=== PATIENT | female | born 1950 | race American Indian/Alaskan Native ===

== ENCOUNTER 2017-02-15 13:44 | Inpatient (IN) | payer MEDICARE, MEDICAID ==
--- NOTE | 2017-02-15 14:02 | ED Physician Chart ---
ED Chief Complaint/HPI - Patient Information Date Seen:: 02/15/17 Time Seen:: 13:45 Chief Complaint:: Vomiting History of Present Illness:: onset x one day of N/V; no report of trauma, H/As, neck pain, C/P, SOB, cough, Abd. Pain, A/D/C, fever, chills, or urinary s/s Allergies:: Allergies Allergy/AdvReac Type Severity Reaction Status Date / Time ceftriaxone [From Rocephin] Allergy Verified 02/15/17 13:53 hydromorphone [From Dilaudid] Allergy Verified 02/15/17 13:53 iodine Allergy Verified 02/15/17 13:52 shellfish derived Allergy Verified 02/15/17 13:53 Historian:: Patient, EMS Review:: Nurse's Note Reviewed, EMS run form Reviewed, Transfer documents Reviewed ED Review of Systems - Review of Systems General/Constitutional: No fever, No chills, No weight loss, No weakness, No diaphoresis, No edema, No loss of appetite Skin: No skin lesions, No rash, No bruising Head: No headache, No light-headedness Eyes: No loss of vision, No pain, No diplopia ENT: No earache, No nasal drainage, No sore throat, No tinnitus Neck: No neck pain, No swelling, No thyromegaly, No stiffness, No mass noted Cardio Vascular: No chest pain, No palpitations, No PND, No orthopnea, No edema Pulmonary: No SOB, No cough, No sputum, No wheezing GI: No nausea, No vomiting, No diarrhea, No pain, No melena, No hematochezia, No constipation, No hematemesis G/U: No dysuria, No frequency, No hematuria Informatics Manager: No vaginal discharge, No abnormal vaginal bleed, No contraction Musculoskeletal: No bone or joint pain, No back pain, No muscle pain Endocrine: Polyuria, Polydipsia Psychiatric: No prior psych history, No depression, No anxiety, No suicidal ideation, No homicidal ideation, No auditory hallucination, No visual hallucination Hematopoietic: No bruising, No lymphadenopathy Allergic/Immuno: No urticaria, No angioedema Neurological: No syncope, No focal symptoms, No weakness, No paresthesia, No headache, No seizure, No dizziness, Confusion, No vertigo ED Past Medical History - Past Medical History Obtainable: Yes Past Medical History: HTN, DM, Dyslipidemia, PUD/GERD, Dementia (GI Bleeds) Family History: Diabetes Melitus, HTN Social History: Non Smoker, No Alcohol, No Drug Use, Single, Care Facility Surgical History: None Psychiatricy History: Dementia Medication: Reviewed ED Physical Exam - Physical Examination General/Constitutional: Awake, Well-developed, well-nourished, Alert, No distress, GCS 15, Non-toxic appearing, Ambulatory Head: Atraumatic Eyes: Lids, conjuctiva normal, PERRL, EOMI Skin: Nl inspection, No rash, No skin lesions, No ecchymosis, Well hydrated, No lymphadenopathy ENMT: External ears, nose nl, Nasal exam nl, Lips, teeth, gums nl Neck: Nontender, Full ROM w/o pain, No JVD, No nuchal rigidity, No bruit, No mass, No stridor Respiratory: Nl effort/Exclusion, Clear to Auscultation, No Wheeze/Rhonchi/Rales Cardio Vascular: RRR, No murmur, gallop, rubs, NL S1 S2 GI: No tenderness/rebounding/guarding, No organomegaly, No hernia, Normal BS's, Nondistended, No mass/bruits, No McBurney tenderness : No CVA tenderness Extremities: No tenderness or effusion, Full ROM, normal strength in all extremities, No edema, Normal digits & nails Neuro/Psych: Alert/oriented, DTR's symmetric, Normal sensory exam, Normal motor strength, Judgement/insight normal, Mood normal, Normal gait, No focal deficits Other Neuro/Psych comments:: Confused and Disorientd Misc: Normal back, No paraspinal tenderness ED Septic Shock - . Is Septic Shock (SBP<90, OR Lactate>4 mmol\L) present?: No
[2017-02-15] MEDS ORDERED: Sodium Chloride 0.9% 1,000 ML IV ONE (14:06)
[2017-02-15 14:43] LABS: % BASOPHILS 0.7 % (0.0-2.0); % EOSINOPHILS 1.3 % (0.0-5.0); % LYMPHOCYTES 16.8 % (20.0-50.0); % MONOCYTES 6.3 % (2.0-10.0); % NEUTROPHILS 74.9 % (40.0-80.0); HEMATOCRIT 30.6 % (41.0-60); MEAN CELL VOLUME 91.7 fl (81-100); MEAN CORPUSCULAR HEMOGLOBIN 29.8 pg (27.0-31.0); MEAN CORPUSCULAR HGB CONC 32.5 pg (28.0-36.0); NEUTROPHILE ABSOLUTE 7.1 Th/cmm (1.8-8.0); PLATELET COUNT 343 Th/cmm (150-400); RED BLOOD COUNT 3.34 Mil/cmm (3.80-5.20); WHITE BLOOD COUNT 9.5 Th/cmm (4.8-10.8)
--- NOTE | 2017-02-15 14:49 | Diagnostic Imaging Report ---
CHEST X-RAY: AP view INDICATION: pain COMPARISON: None FINDINGS: Left basal linear lung markings are noted. There is no focal consolidation or pleural effusions The heart is normal in size. Atherosclerosis is noted. The osseous structures demonstrate no acute abnormalities. IMPRESSION: Left basal linear lung markings which may be due to subsegmental atelectasis versus scarring. No focal consolidation identified. Atherosclerotic vascular disease.
[2017-02-15 14:54] LABS: INR 0.99 (0.5-1.4); PROTHROMBIN TIME (TEST) 10.3 SECONDS (9.5-11.5)
[2017-02-15 15:10] LABS: ALB/GLOB RATIO 0.8 (1.0-1.8); AMYLASE SERUM 58 U/L (29-103); ANION GAP 9.5 (7.0-16.0); BILIRUBIN,TOTAL 0.2 mg/dL (0.3-1.0); BUN/CREATININE RATIO 26.9; CALCIUM SERUM 9.1 mg/dL (8.6-10.3); CARBON DIOXIDE 25.8 mEq/L (21.0-31.0); CREATININE - SERUM 1.3 mg/dL (0.6-1.2); LIPASE 10 U/L (11-82); POTASSIUM SERUM 5.3 mEq/L (3.5-5.1)
[2017-02-15] MEDS ORDERED: INSULIN HUMAN REGULAR 100 UNITS/ML UNIT SUBQ ONE (16:22)
[2017-02-15 17:06] LABS: URINE BILIRUBIN NEGATIVE (NEGATIVE); URINE BLOOD LARGE (NEGATIVE); URINE GLUCOSE (UA) >=1000 mg/dL (NEGATIVE); URINE KETONE NEGATIVE (NEGATIVE); URINE PH 5.5 (4.6 - 8.0); URINE PROTEIN >=300 mg/dL (NEGATIVE); URINE UROBILINOGEN 0.2 E.U./dL (0.2 - 1.0)
[2017-02-15 17:13] LABS: URINE COLOR YELLOW
[2017-02-15 17:17] LABS: URINE BACTERIA FEW /hpf (NONE SEEN); URINE EPITHELIAL CELLS NONE SEEN /lpf (FEW)
[2017-02-15] MEDS ORDERED: INSULIN ASPART, RECOMBINANT 100 UNITS/ML SUBQ ONE (17:47)
[2017-02-15] MEDS ORDERED: Sodium Chloride 0.9% 1,000 ML IV SCH (18:05)
[2017-02-15] MEDS ORDERED: Morphine Sulfate 4 mg/mL 1mL Syr IV PRN (20:01)
[2017-02-15] MEDS ORDERED: Non-Formulary Item 1 EA (Clonidine Hcl [Clonidine Hcl] 0.2 MG) PO PRN (20:01)
[2017-02-15] MEDS ORDERED: Maalox 30 mL Cup PO PRN (20:05)
[2017-02-15] MEDS ORDERED: Levofloxacin 500mg/100mL 500 MG/100 ML BAG IV SCH ×2 (20:41→23:00)
[2017-02-15] MEDS ORDERED: Levofloxacin 500mg/100mL 500 MG/100 ML BAG IV ONE (21:00)
[2017-02-15] MEDS: Atorvastatin Calcium 10 MG TAB PO SCH (22:42)
[2017-02-16] MEDS ORDERED: INSULIN ASPART SLIDING SCALE 100 UNITS/ML UNIT SUBQ SCH
[2017-02-16] MEDS: INSULIN ASPART SLIDING SCALE 100 UNITS/ML UNIT SUBQ SCH ×5 (00:26→21:00)
[2017-02-16] MEDS: Sodium Chloride 0.9% 1,000 ML IV SCH ×2 (04:54→16:16)
[2017-02-16] MEDS: POLYETHYLENE GLYCOL 3350 17 GM PACK PO SCH ×2 (08:16→16:45)
[2017-02-16] MEDS: Pantoprazole 40 mg EC Tab PO SCH (08:18)
[2017-02-16] MEDS: Aspirin 81mg Chewable Tab PO SCH (08:18)
[2017-02-16] MEDS ORDERED: Albuterol Nebulizer 2.5mg/3mL HHN SCH (09:00)
[2017-02-16] MEDS ORDERED: PETROLATUM WHITE TP SCH (09:00)
[2017-02-16] MEDS ORDERED: LANOLIN TP SCH (09:00)
[2017-02-16] MEDS: Hydrogel 3 oz Tube TP SCH (14:18)
[2017-02-16] MEDS: Atorvastatin Calcium 10 MG TAB PO SCH (20:31)
[2017-02-16] MEDS: Levofloxacin 250 mg/50 mL Premix Bag IV SCH (20:32)
[2017-02-17] MEDS: Sodium Chloride 0.9% 1,000 ML IV SCH ×3 (06:40→17:43)
[2017-02-17] MEDS: INSULIN ASPART SLIDING SCALE 100 UNITS/ML UNIT SUBQ SCH ×4 (06:44→20:40)
[2017-02-17 09:11] LABS: % BASOPHILS 0.6 % (0.0-2.0); % EOSINOPHILS 5.7 % (0.0-5.0); % LYMPHOCYTES 30.4 % (20.0-50.0); % MONOCYTES 9.5 % (2.0-10.0); % NEUTROPHILS 53.8 % (40.0-80.0); HEMATOCRIT 29.9 % (41.0-60); HEMOGLOBIN 9.9 gm/dL (12-16); MEAN CORPUSCULAR HEMOGLOBIN 30.1 pg (27.0-31.0); MEAN PLATELET VOLUME 7.3 fl; NEUTROPHILE ABSOLUTE 3.5 Th/cmm (1.8-8.0); PLATELET COUNT 288 Th/cmm (150-400); RED BLOOD COUNT 3.29 Mil/cmm (3.80-5.20); RED CELL DISTRIBUTION WIDTH 15.1 % (11.5-20.0)
[2017-02-17 09:12] LABS: WHITE BLOOD COUNT 6.4 Th/cmm (4.8-10.8)
[2017-02-17 09:24] LABS: ANION GAP 8.2 (7.0-16.0); BUN - UREA NITROGEN 24 mg/dL (7-25); CALCIUM SERUM 8.6 mg/dL (8.6-10.3); CARBON DIOXIDE 26.9 mEq/L (21.0-31.0); CHLORIDE 107 mEq/L (98-107); GLUCOSE 321 mg/dL (70-105); POTASSIUM SERUM 5.1 mEq/L (3.5-5.1); SODIUM SERUM 137 mEq/L (136-145)
[2017-02-17] MEDS: POLYETHYLENE GLYCOL 3350 17 GM PACK PO SCH ×2 (09:52→17:41)
[2017-02-17] MEDS: Pantoprazole 40 mg EC Tab PO SCH (09:52)
[2017-02-17] MEDS: Aspirin 81mg Chewable Tab PO SCH (09:52)
[2017-02-17] MEDS: Hydrogel 3 oz Tube TP SCH (10:06)
--- NOTE | 2017-02-17 13:21 | History & Physical ---
ADMIT DATE: 02/15/2017 HISTORY OF PRESENT ILLNESS: The patient is a resident of [facility]. Apparently, she has been having abdominal pain and vomiting consistently several times. She was brought to the ER and was found to have hyponatremia, uncontrolled diabetes, dehydration, UTI, and hyperglycemia uncontrolled and was admitted, and it was hard to get history from the patient. REVIEW OF SYSTEMS: Difficult to obtain. The patient is complaining of abdominal pain and nausea and vomiting. PHYSICAL EXAMINATION: GENERAL: Awake, alert, not in acute distress. VITAL SIGNS: Stable. HEAD: Normal. ENT: Normal. LUNGS: Clear. CARDIOVASCULAR SYSTEM: S1, S2 heard. ABDOMEN: Soft. Bowel sounds are heard. CENTRAL NERVOUS SYSTEM: Decreased sensorium. DIAGNOSES: Hyponatremia, uncontrolled diabetes, nausea, vomiting, hyperglycemia, dehydration, and urinary tract infection. PLAN: The patient is being admitted. I will go ahead and give her antibiotics and fluids, and I will call Dr. Fleming to see the patient and I will follow the patient. JOB# [id number]
[2017-02-17] MEDS: LANOLIN TP SCH (13:49)
[2017-02-17] MEDS: Atorvastatin Calcium 10 MG TAB PO SCH (20:25)
[2017-02-17] MEDS: Levofloxacin 250 mg/50 mL Premix Bag IV SCH (20:27)
[2017-02-18] MEDS: INSULIN ASPART SLIDING SCALE 100 UNITS/ML UNIT SUBQ SCH ×5 (06:37→21:01)
[2017-02-18] MEDS: Sodium Chloride 0.9% 1,000 ML IV SCH (06:38)
[2017-02-18] MEDS: Aspirin 81mg Chewable Tab PO SCH (09:13)
[2017-02-18] MEDS: Pantoprazole 40 mg EC Tab PO SCH (09:15)
[2017-02-18] MEDS: NIFEdipine 30 mg ER Tab PO SCH (09:15)
[2017-02-18] MEDS: POLYETHYLENE GLYCOL 3350 17 GM PACK PO SCH ×2 (09:18→17:09)
[2017-02-18] MEDS: Hydrogel 3 oz Tube TP SCH (09:22)
[2017-02-18] MEDS: LANOLIN TP SCH (15:01)
[2017-02-18] MEDS ORDERED: Probiotic Screen MC PRN (16:27)
[2017-02-18] MEDS: Insulin Detemir 100 units/mL 10mL Vial SUBQ SCH (16:55)
--- NOTE | 2017-02-18 19:59 | Internal Medicine Prog Note ---
Internal Medicine Subjective - Subjective Service Date: 02/18/17 Patient seen and examined:: with staff Patient is:: awake, verbal Per staff patient has:: no adverse event, tolerating meds Internal Medicine Objective - Results Result Diagrams: 02/17/17 08:40 02/17/17 08:40 Recent Labs: Laboratory Last Values WBC 6.4 Th/cmm (4.8-10.8) D 02/17/17 08:40 RBC 3.29 Mil/cmm (3.80-5.20) L 02/17/17 08:40 Hgb 9.9 gm/dL (12-16) L 02/17/17 08:40 Hct 29.9 % (41.0-60) L 02/17/17 08:40 MCV 91.0 fl (81-100) 02/17/17 08:40 MCH 30.1 pg (27.0-31.0) 02/17/17 08:40 MCHC Differential 33.0 pg (28.0-36.0) 02/17/17 08:40 RDW 15.1 % (11.5-20.0) 02/17/17 08:40 Plt Count 288 Th/cmm (150-400) 02/17/17 08:40 MPV 7.3 fl 02/17/17 08:40 Neutrophils % 53.8 % (40.0-80.0) 02/17/17 08:40 Lymphocytes % 30.4 % (20.0-50.0) 02/17/17 08:40 Monocytes % 9.5 % (2.0-10.0) 02/17/17 08:40 Eosinophils % 5.7 % (0.0-5.0) H 02/17/17 08:40 Basophils % 0.6 % (0.0-2.0) 02/17/17 08:40 PT 10.3 SECONDS (9.5-11.5) 02/15/17 14:30 INR 0.99 (0.5-1.4) 02/15/17 14:30 Sodium 137 mEq/L (136-145) 02/17/17 08:40 Potassium 5.1 mEq/L (3.5-5.1) 02/17/17 08:40 Chloride 107 mEq/L (98-107) 02/17/17 08:40 Carbon Dioxide 26.9 mEq/L (21.0-31.0) 02/17/17 08:40 Anion Gap 8.2 (7.0-16.0) 02/17/17 08:40 BUN 24 mg/dL (7-25) 02/17/17 08:40 Creatinine 1.0 mg/dL (0.6-1.2) 02/17/17 08:40 Est GFR ( Amer) > 60.0 ml/min (>90) 02/17/17 08:40 Est GFR (Non-Af Amer) 59.1 ml/min 02/17/17 08:40 BUN/Creatinine Ratio 24.0 02/17/17 08:40 Glucose 321 mg/dL (70-105) H 02/17/17 08:40 POC Glucose 391 MG/DL (70 - 105) H 02/18/17 17:59 Hemoglobin A1c % 8.4 % (4.0-6.0) H 02/15/17 14:30 Calcium 8.6 mg/dL (8.6-10.3) 02/17/17 08:40 Total Bilirubin 0.2 mg/dL (0.3-1.0) L 02/15/17 14:30 AST 10 U/L (13-39) L 02/15/17 14:30 ALT 7 U/L (7-52) 02/15/17 14:30 Alkaline Phosphatase 139 U/L (34-104) H 02/15/17 14:30 Creatine Kinase 85 U/L (30-223) 02/15/17 14:30 Troponin I 0.01 ng/mL (0.01-0.05) 02/15/17 14:30 B-Natriuretic Peptide 73.4 pg/mL (5.0-100.0) 02/15/17 14:30 Total Protein 7.0 gm/dL (6.0-8.3) 02/15/17 14:30 Albumin 3.2 gm/dL (3.7-5.3) L 02/15/17 14:30 Globulin 3.8 gm/dL 02/15/17 14:30 Albumin/Globulin Ratio 0.8 (1.0-1.8) L 02/15/17 14:30 Triglycerides 248 mg/dL (<150) H 02/15/17 14:30 Cholesterol 194 mg/dL (<200) 02/15/17 14:30 LDL Cholesterol Direct 116 mg/dL (75-193) 02/15/17 14:30 HDL Cholesterol 53 mg/dL (23-92) 02/15/17 14:30 Amylase 58 U/L (29-103) 02/15/17 14:30 Lipase 10 U/L (11-82) L 02/15/17 14:30 Urine Source CLEAN C 02/15/17 15:15 Urine Color YELLOW 02/15/17 15:15 Urine Clarity CLOUDY (CLEAR) H 02/15/17 15:15 Urine pH 5.5 (4.6 - 8.0) 02/15/17 15:15 Ur Specific [place] 1.020 (1.005-1.030) 02/15/17 15:15 Urine Protein >=300 mg/dL (NEGATIVE) 02/15/17 15:15 Urine Glucose (UA) >=1000 mg/dL (NEGATIVE) H 02/15/17 15:15 Urine Ketones NEGATIVE mg/dL (NEGATIVE) 02/15/17 15:15 Urine Blood LARGE (NEGATIVE) H 02/15/17 15:15 Urine Nitrate NEGATIVE (NEGATIVE) 02/15/17 15:15 Urine Bilirubin NEGATIVE (NEGATIVE) 02/15/17 15:15 Urine Urobilinogen 0.2 E.U./dL (0.2 - 1.0) 02/15/17 15:15 Ur Leukocyte Esterase TRACE (NEGATIVE) H 02/15/17 15:15 Urine RBC 5-10 /hpf (0-5) H 02/15/17 15:15 Urine WBC 6-10 /hpf (0-5) H 02/15/17 15:15 Ur Epithelial Cells NONE SEEN /lpf (FEW) 02/15/17 15:15 Urine Bacteria FEW /hpf (NONE SEEN) 02/15/17 15:15 Urine Yeast MANY /hpf (NONE SEEN) H 02/15/17 15:15 - Physical Exam Vitals and I&O: Vital Signs Temp 99.1 F 02/18/17 16:00 Pulse 66 02/18/17 16:39 Resp 20 02/18/17 16:00 BP 181/61 02/18/17 16:39 Pulse Ox 94 02/18/17 16:00 Intake & Output 02/18/17 02/18/17 02/19/17 06:59 18:59 06:59 Intake Total 1050 Balance 1050 Weight (lbs) 335 lb Intake: Intake, IV Amount 1050 Levofloxacin 250mg/50mL 50 250 mg In 50 ml @ 50 mls/ hr IV Q24HR [facility] Rx#: [id number] Sodium Chloride 0.9% 1, 1000 000 ml @ 100 mls/hr IV . Q10H [facility] Rx#:[id number] Other: Stool Characteristics Soft Brown Active Medications: Current Medications Acetaminophen (Tylenol) 650 mg PO Q4HR PRN PRN Reason: Pain Or Fever above 101 Stop: 04/16/17 20:04 Last Admin: 02/16/17 09:46 Dose: 650 mg Al Hydrox/Mg Hydrox/Simethicone (Maalox) 30 ml PO Q6HR PRN PRN Reason: Dyspepsia Stop: 04/16/17 20:04 Albuterol Sulfate (Albuterol 2.5mg/3ml Neb Ud) 2.5 mg HHN DAILY [facility] Stop: 04/17/17 08:59 Allopurinol (Zyloprim) 100 mg PO DAILY [facility] Stop: 04/17/17 08:59 Last Admin: 02/18/17 09:15 Dose: 100 mg Aspirin (Aspirin Chewable) 81 mg PO DAILY [facility] Stop: 04/17/17 08:59 Last Admin: 02/18/17 09:13 Dose: 81 mg Atorvastatin Calcium (Lipitor) 20 mg PO HS [facility] Stop: 04/16/17 20:59 Last Admin: 02/17/17 20:25 Dose: 20 mg Baclofen (Lioresal) 10 mg PO QID [facility] Stop: 04/16/17 20:59 Last Admin: 02/18/17 09:14 Dose: 10 mg Bandage/Support Products (Hydrogel) 1 appl TP DAILY [facility] Stop: 04/17/17 08:59 Last Admin: 02/18/17 09:22 Dose: 1 appl Donepezil HCl (Aricept) 10 mg PO DAILY [facility] Stop: 04/17/17 08:59 Last Admin: 02/18/17 09:14 Dose: 10 mg Enalapril Maleate (Vasotec) 10 mg PO TID [facility] Stop: 04/19/17 16:14 Gabapentin (Neurontin) 100 mg PO TID [facility] Stop: 04/16/17 20:59 Last Admin: 02/18/17 09:14 Dose: 100 mg Hydralazine HCl (Apresoline) 50 mg PO TID [facility] Stop: 04/16/17 20:59 Last Admin: 02/18/17 09:18 Dose: 50 mg Sodium Chloride (Nacl 0.9%) 1,000 mls @ 100 mls/hr IV .Q10H [facility] Stop: 04/16/17 20:14 Last Admin: 02/18/17 06:38 Dose: 100 mls/hr Insulin Aspart (Novolog Insulin Sliding Scale) 0 units SUBQ ACHS [facility] PRN Reason: Protocol Stop: 04/16/17 20:59 Last Admin: 02/18/17 14:57 Dose: 1,000 units Insulin Detemir (Levemir Insulin) 20 units SUBQ BID [facility] PRN Reason: Protocol Stop: 04/19/17 16:59 Last Admin: 02/18/17 16:55 Dose: 20 units Lactobacillus Rhamnosus (Culturelle) 1 each PO DAILY [facility] Stop: 04/20/17 08:59 Levofloxacin (Levaquin) 500 mg PO Q24H [facility] Stop: 04/19/17 17:59 Miscellaneous (Misc Topical Product) 0 appl TP DAILY [facility] Stop: 04/18/17 08:59 Last Admin: 02/18/17 15:01 Dose: 130 appl Miscellaneous (Probiotic Screen) 1 ea MC PRN PRN PRN Reason: PROTOCOL Stop: 04/19/17 16:26 Morphine Sulfate (Morphine) 4 mg IV Q6H PRN PRN Reason: Severe Pain Mupirocin (Bactroban Oint) 1 appl TP BID [facility] Stop: 02/21/17 16:59 Last Admin: 02/18/17 14:55 Dose: 1 appl Mupirocin (Bactroban Oint) 1 appl NS BID [facility] Stop: 02/21/17 17:01 Last Admin: 02/18/17 09:20 Dose: 1 appl Nifedipine (Procardia Xl) 30 mg PO DAILY [facility] Stop: 04/19/17 16:14 Ondansetron HCl (Zofran Odt) 4 mg PO TID PRN PRN Reason: [place] Last Admin: 02/16/17 12:35 Dose: 4 mg Ondansetron HCl (Zofran) 4 mg IV Q8H PRN PRN Reason: Nausea / Vomiting Stop: 04/16/17 20:04 Pantoprazole Sodium (Protonix) 40 mg PO DAILY [facility] Stop: 04/17/17 08:59 Last Admin: 02/18/17 09:15 Dose: 40 mg Polyethylene Glycol (Miralax) 17 gm PO BID [facility] Stop: 04/17/17 08:59 Last Admin: 02/18/17 17:09 Dose: 17 gm Sucralfate (Carafate) 1 gm PO BIDAC [facility] Stop: 04/17/17 07:29 Last Admin: 02/18/17 17:09 Dose: 1 gm General: weak, alert HEENT: NC/AT, PERRLA Neck: Supple Lungs: CTAB Cardiovascular: RRR, Normal S1, Normal S2, without murmur Abdomen: soft, non-tender, non-distended Extremities: excoriation Neurological: no change Internal Medicine Assmt/Plan - Assessment Assessment: HYPONATREMIA UNCONTROLLED DM NAUSEA VOMITING DEHYDRATION UTI - Plan Plan: IVF FOR HYDRATION IV ABX CONTINUE CURRENT PLAN OF CARE Nutritional Asmnt/Malnutr-PDOC - Dietary Evaluation Malnutrition Findings (Please click <Entered> for more info): Nutritional Asmnt/Malnutrition Start: 02/16/17 14: 29 Text: Status: Complete Freq: Document 02/16/17 14:29 GSUN (Rec: 02/16/17 14:52 [email or web address] [id number]) Nutritional Asmnt/Malnutrition Patient General Information Nutritional Screening Consult Diagnosis ER: hyponatremia, N/V, uncontrolled DM, dehydration Pertinent Medical Hx/Surgical Hx ER report: HTN, DM, dyslipidemia, PUD/GERD, dementia, GI bleeds Subjective Information 66 [address] consult for A1c 8.4. Family and water quality manager Dale at bedside during inital visit. Pt with few teeth intact, requested for ground diet, senior grant writer explained levels of diet texture. Pt did not have a diet order during visit, however lunch tray at bedside and pt finished soup. Spoke to ANIA Sterling, RN stated there should be a standing diet order as there is no reason pt to be NPO. Pt was pelasant and alert. 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 Water Quality Technician provided brief nutrition edu on DM, pt declined detailed edu, pt has no questions at this time. Pt demonstrated fair [facility] diet knowledge and udnerstanding. Pt appeared morbidy obese, no muscle/fat wastings noted. Pt report UBW 440lb 1 month ago, questionable difference with EMR CBW 338lb. Pt stated possible richard loss as she has been "put on a diet." Pt reported usually good appetite . Current Diet Order/ Nutrition Support [id number], [facility] soft ground Pertinent Medications Lipitor, Novolog, Morphine, Zofran, Protonix, Miralax, Carafate Pertinent Labs 02/15: A1c 8.4, glucose 419 02/16: glucose 464H Nutritional Hx/Data Height 5 ft 9 in Height (Calculated Centimeters) 175.3 Current Weight (lbs) 338 lb Weight (Calculated Kilograms) 153.3 Weight (Calculated Grams) 510839.2 Usual body Weight (lbs) 440 [place] Body Weight 145 Weight Status Morbidly Obese GI Symptoms Difficult in: Chewing Food Allergies Yes Skin Integrity/Comment: Berny 13. Wound care 02/16: multiple moisture wounds, 1 non-intact skin Estimated Nutritional Goals BEE in Kcals: Adj wt of IBW Calories/Kcals/Kg AdjBW 193.3lb/87.8kg Kcals Calculated 2195-2634kcal (25-30kcal/kg) Protein: Adj wt of IBW Protein Calculated 88g (1g/kg) Fluid: ml 2195-2634ml (1ml/kcal) Nutritional Problem 3. Problem Problem Malnutrition related to Etiology energy inbalance aeb Signs/Symptoms: morbid obesity, BMI >40 2. Problem Problem Difficulty chewing related to Etiology few intact teeth aeb Signs/Symptoms: pt requested ground texture 1. Problem Problem Altered nutrition related laboratory values related to Etiology DM aeb Signs/Symptoms: A1c 8.4, glucose >400 Malnutrition Related to Morbid Obesity Malnutrition related to morbid obesity BMI> or equal to 40 Query Text:(Any 1 Criteria met) Malnutrition related to morbid obesity Yes Intervention/Recommendation Comments 1. Recommend [id number] to rpomtoe glycemic control while providing to meet minimal carbohydrate needs. 2. Discussed diet texture with pt, pt requested [facility] soft ground texture as pt only has few intact teeth. 3. Provided brief nutrition edu, pt demonstrated fair understanding. No further qusetions at this time. 4. 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 EMR listed "shellfish derived" only. ANIA Sterling and FNS notified . Expected Outcomes/Goals Expected Outcomes/Goals 1. PO intake to meet at least 75% of estimated nutritinoal eneds.
[2017-02-18] MEDS: Atorvastatin Calcium 10 MG TAB PO SCH (20:59)
[2017-02-19] MEDS: INSULIN ASPART SLIDING SCALE 100 UNITS/ML UNIT SUBQ SCH ×4 (06:38→21:26)
--- NOTE | 2017-02-19 08:10 | Progress Notes ---
DATE: SUBJECTIVE: The patient was seen in her room, lying in the bed. Per patient, she is feeling okay, denies any pain or discomfort. Per patient, she is having poor sleep pattern since she moved here to the hospital, otherwise the patient denies any discomfort or pain. Appears to be comfortable in no acute distress. OBJECTIVE: VITAL SIGNS: Temperature of 98, heart rate of 63, blood pressure 156/67, respirations of 18, 98% on room air. HEAD: Atraumatic and normocephalic. EYES: Bilateral conjunctivae are clear. Bilateral pupils equally round and reactive. NECK: Supple. No JVD. CARDIOVASCULAR: S1 and S2, without murmur. GASTROINTESTINAL: Soft and nontender without guarding. Positive bowel sounds. MUSCULOSKELETAL: No clubbing. No cyanosis noted. ASSESSMENT: 1. Hyponatremia. 2. Diabetes mellitus. 3. Dehydration. 4. Urinary tract infection. 5. Gout. 6. Hyperlipidemia. 7. Dementia. 8. Neuropathy. PLAN: We will continue current treatment. We will follow up with ID doctor for antibiotic management. Treatment plans were discussed with the patient's nurse. Treatment plans were discussed with Dr. Wright. JOB# [id number]
[2017-02-19] MEDS: Lactobacillus Rhamnosus 10 Billion CFU Capsule PO SCH (08:34)
[2017-02-19] MEDS: Aspirin 81mg Chewable Tab PO SCH (08:34)
[2017-02-19] MEDS: Pantoprazole 40 mg EC Tab PO SCH (08:34)
[2017-02-19] MEDS: NIFEdipine 30 mg ER Tab PO SCH (08:36)
[2017-02-19] MEDS: POLYETHYLENE GLYCOL 3350 17 GM PACK PO SCH ×2 (08:42→17:24)
[2017-02-19] MEDS: Insulin Detemir 100 units/mL 10mL Vial SUBQ SCH ×2 (08:49→17:33)
[2017-02-19 11:42] LABS: ALB/GLOB RATIO 0.9 (1.0-1.8); ALKALINE PHOSPHATASE 117 U/L (34-104); ANION GAP 9.2 (7.0-16.0); BILIRUBIN,TOTAL 0.2 mg/dL (0.3-1.0); BUN - UREA NITROGEN 21 mg/dL (7-25); BUN/CREATININE RATIO 23.3; CALCIUM SERUM 8.6 mg/dL (8.6-10.3); CARBON DIOXIDE 27.7 mEq/L (21.0-31.0); CHLORIDE 104 mEq/L (98-107); CREATININE - SERUM 0.9 mg/dL (0.6-1.2); GLUCOSE 344 mg/dL (70-105); POTASSIUM SERUM 4.9 mEq/L (3.5-5.1); SGOT 11 U/L (13-39); SGPT/ALT 9 U/L (7-52); SODIUM SERUM 136 mEq/L (136-145)
[2017-02-19] MEDS: Sodium Chloride 0.9% 1,000 ML IV SCH ×2 (13:12→21:34)
[2017-02-19] MEDS: LANOLIN TP SCH (14:51)
[2017-02-19] MEDS: Hydrogel 3 oz Tube TP SCH (14:51)
[2017-02-19] MEDS: Atorvastatin Calcium 10 MG TAB PO SCH (21:28)
[2017-02-20] MEDS: INSULIN ASPART SLIDING SCALE 100 UNITS/ML UNIT SUBQ SCH ×4 (07:42→22:49)
[2017-02-20] MEDS: Aspirin 81mg Chewable Tab PO SCH (08:32)
[2017-02-20] MEDS: Insulin Detemir 100 units/mL 10mL Vial SUBQ SCH ×2 (08:34→17:32)
[2017-02-20] MEDS: POLYETHYLENE GLYCOL 3350 17 GM PACK PO SCH ×2 (08:35→17:32)
[2017-02-20] MEDS: NIFEdipine 30 mg ER Tab PO SCH (08:35)
--- NOTE | 2017-02-20 10:13 | General Progress Note ---
Subjective - Review of Systems Events since last encounter: patient awake alert no distress Objective - Results Result Diagrams: 02/17/17 08:40 02/19/17 11:21 Recent Labs: Laboratory Last Values WBC 6.4 Th/cmm (4.8-10.8) D 02/17/17 08:40 RBC 3.29 Mil/cmm (3.80-5.20) L 02/17/17 08:40 Hgb 9.9 gm/dL (12-16) L 02/17/17 08:40 Hct 29.9 % (41.0-60) L 02/17/17 08:40 MCV 91.0 fl (81-100) 02/17/17 08:40 MCH 30.1 pg (27.0-31.0) 02/17/17 08:40 MCHC Differential 33.0 pg (28.0-36.0) 02/17/17 08:40 RDW 15.1 % (11.5-20.0) 02/17/17 08:40 Plt Count 288 Th/cmm (150-400) 02/17/17 08:40 MPV 7.3 fl 02/17/17 08:40 Neutrophils % 53.8 % (40.0-80.0) 02/17/17 08:40 Lymphocytes % 30.4 % (20.0-50.0) 02/17/17 08:40 Monocytes % 9.5 % (2.0-10.0) 02/17/17 08:40 Eosinophils % 5.7 % (0.0-5.0) H 02/17/17 08:40 Basophils % 0.6 % (0.0-2.0) 02/17/17 08:40 PT 10.3 SECONDS (9.5-11.5) 02/15/17 14:30 INR 0.99 (0.5-1.4) 02/15/17 14:30 Sodium 136 mEq/L (136-145) 02/19/17 11:21 Potassium 4.9 mEq/L (3.5-5.1) 02/19/17 11:21 Chloride 104 mEq/L (98-107) 02/19/17 11:21 Carbon Dioxide 27.7 mEq/L (21.0-31.0) 02/19/17 11:21 Anion Gap 9.2 (7.0-16.0) 02/19/17 11:21 BUN 21 mg/dL (7-25) 02/19/17 11:21 Creatinine 0.9 mg/dL (0.6-1.2) 02/19/17 11:21 Est GFR ( Amer) > 60.0 ml/min (>90) 02/19/17 11:21 Est GFR (Non-Af Amer) > 60.0 ml/min 02/19/17 11:21 BUN/Creatinine Ratio 23.3 02/19/17 11:21 Glucose 428 mg/dL (70-105) H 02/19/17 17:41 POC Glucose 267 MG/DL (70 - 105) H 02/20/17 07:41 Hemoglobin A1c % 8.4 % (4.0-6.0) H 02/15/17 14:30 Calcium 8.6 mg/dL (8.6-10.3) 02/19/17 11:21 Total Bilirubin 0.2 mg/dL (0.3-1.0) L 02/19/17 11:21 AST 11 U/L (13-39) L 02/19/17 11:21 ALT 9 U/L (7-52) 02/19/17 11:21 Alkaline Phosphatase 117 U/L (34-104) H 02/19/17 11:21 Creatine Kinase 85 U/L (30-223) 02/15/17 14:30 Troponin I 0.01 ng/mL (0.01-0.05) 02/15/17 14:30 B-Natriuretic Peptide 73.4 pg/mL (5.0-100.0) 02/15/17 14:30 Total Protein 6.1 gm/dL (6.0-8.3) 02/19/17 11:21 Albumin 2.8 gm/dL (3.7-5.3) L 02/19/17 11:21 Globulin 3.3 gm/dL 02/19/17 11:21 Albumin/Globulin Ratio 0.9 (1.0-1.8) L 02/19/17 11:21 Triglycerides 248 mg/dL (<150) H 02/15/17 14:30 Cholesterol 194 mg/dL (<200) 02/15/17 14:30 LDL Cholesterol Direct 116 mg/dL (75-193) 02/15/17 14:30 HDL Cholesterol 53 mg/dL (23-92) 02/15/17 14:30 Amylase 58 U/L (29-103) 02/15/17 14:30 Lipase 10 U/L (11-82) L 02/15/17 14:30 Urine Source CLEAN C 02/15/17 15:15 Urine Color YELLOW 02/15/17 15:15 Urine Clarity CLOUDY (CLEAR) H 02/15/17 15:15 Urine pH 5.5 (4.6 - 8.0) 02/15/17 15:15 Ur Specific [place] 1.020 (1.005-1.030) 02/15/17 15:15 Urine Protein >=300 mg/dL (NEGATIVE) 02/15/17 15:15 Urine Glucose (UA) >=1000 mg/dL (NEGATIVE) H 02/15/17 15:15 Urine Ketones NEGATIVE mg/dL (NEGATIVE) 02/15/17 15:15 Urine Blood LARGE (NEGATIVE) H 02/15/17 15:15 Urine Nitrate NEGATIVE (NEGATIVE) 02/15/17 15:15 Urine Bilirubin NEGATIVE (NEGATIVE) 02/15/17 15:15 Urine Urobilinogen 0.2 E.U./dL (0.2 - 1.0) 02/15/17 15:15 Ur Leukocyte Esterase TRACE (NEGATIVE) H 02/15/17 15:15 Urine RBC 5-10 /hpf (0-5) H 02/15/17 15:15 Urine WBC 6-10 /hpf (0-5) H 02/15/17 15:15 Ur Epithelial Cells NONE SEEN /lpf (FEW) 02/15/17 15:15 Urine Bacteria FEW /hpf (NONE SEEN) 02/15/17 15:15 Urine Yeast MANY /hpf (NONE SEEN) H 02/15/17 15:15 - Physical Exam Vitals and I&O: Vital Signs Temp 98 F 02/20/17 04:00 Pulse 83 02/20/17 08:33 Resp 18 02/20/17 04:00 BP 183/64 02/20/17 08:33 Pulse Ox 97 02/20/17 04:00 Intake & Output 02/19/17 02/20/17 02/20/17 18:59 06:59 18:59 Intake Total 1600 1036.667 Output Total 2100 Balance -500 1036.667 Weight (lbs) 151.953 kg 151.953 kg Intake: Intake, IV Amount 1000 836.667 Sodium Chloride 0.9% 1, 1000 836.667 000 ml @ 100 mls/hr IV . Q10H [facility] Rx#:[id number] Oral 600 200 Output: Urine 2100 Other: # Bowel Movements 1 Stool Characteristics Soft Soft Brown Brown Active Medications: Current Medications Acetaminophen (Tylenol) 650 mg PO Q4HR PRN PRN Reason: Pain Or Fever above 101 Stop: 04/16/17 20:04 Last Admin: 02/16/17 09:46 Dose: 650 mg Al Hydrox/Mg Hydrox/Simethicone (Maalox) 30 ml PO Q6HR PRN PRN Reason: Dyspepsia Stop: 04/16/17 20:04 Albuterol Sulfate (Albuterol 2.5mg/3ml Neb Ud) 2.5 mg HHN DAILY [facility] Stop: 04/17/17 08:59 Allopurinol (Zyloprim) 100 mg PO DAILY [facility] Stop: 04/17/17 08:59 Last Admin: 02/20/17 08:31 Dose: 100 mg Aspirin (Aspirin Chewable) 81 mg PO DAILY [facility] Stop: 04/17/17 08:59 Last Admin: 02/20/17 08:32 Dose: 81 mg Atorvastatin Calcium (Lipitor) 20 mg PO HS [facility] Stop: 04/16/17 20:59 Last Admin: 02/19/17 21:28 Dose: 20 mg Baclofen (Lioresal) 10 mg PO QID [facility] Stop: 04/16/17 20:59 Last Admin: 02/20/17 08:32 Dose: 10 mg Bandage/Support Products (Hydrogel) 1 appl TP DAILY [facility] Stop: 04/17/17 08:59 Last Admin: 02/19/17 14:51 Dose: 1 appl Donepezil HCl (Aricept) 10 mg PO DAILY [facility] Stop: 04/17/17 08:59 Last Admin: 02/19/17 08:36 Dose: 10 mg Enalapril Maleate (Vasotec) 10 mg PO TID [facility] Stop: 04/19/17 16:14 Last Admin: 02/20/17 08:33 Dose: 10 mg Gabapentin (Neurontin) 100 mg PO TID [facility] Stop: 04/16/17 20:59 Last Admin: 02/20/17 08:32 Dose: 100 mg Hydralazine HCl (Apresoline) 50 mg PO TID [facility] Stop: 04/16/17 20:59 Last Admin: 02/20/17 08:33 Dose: 50 mg Hydralazine HCl (Apresoline 20 Mg/Ml) 10 mg IV Q4H PRN PRN Reason: SBP >160 AND/OR DBP > 100 Stop: 04/20/17 12:23 Last Admin: 02/19/17 12:53 Dose: 10 mg Sodium Chloride (Nacl 0.9%) 1,000 mls @ 100 mls/hr IV .Q10H [facility] Stop: 04/16/17 20:14 Last Admin: 02/19/17 21:34 Dose: 100 mls/hr Insulin Aspart (Novolog Insulin Sliding Scale) 0 units SUBQ ACHS [facility] PRN Reason: Protocol Stop: 04/16/17 20:59 Last Admin: 02/20/17 07:42 Dose: 6 units Insulin Detemir (Levemir Insulin) 25 units SUBQ BID [facility] PRN Reason: Protocol Stop: 04/19/17 16:59 Last Admin: 02/20/17 08:34 Dose: 25 unit Lactobacillus Rhamnosus (Culturelle) 1 each PO DAILY [facility] Stop: 04/20/17 08:59 Last Admin: 02/19/17 08:34 Dose: 1 each Levofloxacin (Levaquin) 500 mg PO Q24H [facility] Stop: 04/19/17 17:59 Last Admin: 02/19/17 17:24 Dose: 500 mg Miscellaneous (Misc Topical Product) 0 appl TP DAILY [facility] Stop: 04/18/17 08:59 Last Admin: 02/19/17 14:51 Dose: 1 appl Miscellaneous (Probiotic Screen) 1 ea MC PRN PRN PRN Reason: PROTOCOL Stop: 04/19/17 16:26 Morphine Sulfate (Morphine) 4 mg IV Q6H PRN PRN Reason: Severe Pain Mupirocin (Bactroban Oint) 1 appl TP BID [facility] Stop: 02/21/17 16:59 Last Admin: 02/20/17 08:31 Dose: 1 appl Mupirocin (Bactroban Oint) 1 appl NS BID [facility] Stop: 02/21/17 17:01 Last Admin: 02/20/17 08:46 Dose: 1 appl Nifedipine (Procardia Xl) 60 mg PO DAILY [facility] Stop: 04/21/17 08:59 Ondansetron HCl (Zofran Odt) 4 mg PO TID PRN PRN Reason: NV Last Admin: 02/16/17 12:35 Dose: 4 mg Ondansetron HCl (Zofran) 4 mg IV Q8H PRN PRN Reason: Nausea / Vomiting Stop: 04/16/17 20:04 Pantoprazole Sodium (Protonix) 40 mg PO DAILY [facility] Stop: 04/17/17 08:59 Last Admin: 02/19/17 08:34 Dose: 40 mg Polyethylene Glycol (Miralax) 17 gm PO BID [facility] Stop: 04/17/17 08:59 Last Admin: 02/19/17 17:24 Dose: 17 gm Sucralfate (Carafate) 1 gm PO BIDAC [facility] Stop: 04/17/17 07:29 Last Admin: 02/20/17 08:33 Dose: 1 gm General: No acute distress HEENT: Atraumatic Neck: Supple Cardiovascular: Regular rate, Normal S1 Abdomen: Bowel sounds Assessment/Plan - Problem List Patient Problems: All Active Problems NAUSEA AND VOMITING (Acute) - Plan Plan: cpm Nutritional Asmnt/Malnutr-PDOC - Dietary Evaluation Malnutrition Findings (Please click <Entered> for more info): Nutritional Asmnt/Malnutrition Start: 02/16/17 14: 29 Text: Status: Complete Freq: Document 02/16/17 14:29 GSUN (Rec: 02/16/17 14:52 GSUN [id number]) Nutritional Asmnt/Malnutrition Patient General Information Nutritional Screening Consult Diagnosis ER: hyponatremia, N/V, uncontrolled DM, dehydration Pertinent Medical Hx/Surgical Hx ER report: HTN, DM, dyslipidemia, PUD/GERD, dementia, GI bleeds Subjective Information 66 [address] consult for A1c 8.4. Family and security business analyst Dale at bedside during inital visit. Pt with few teeth intact, requested for ground diet, clinical writer explained levels of diet texture. Pt did not have a diet order during visit, however lunch tray at bedside and pt finished soup. Spoke to ANIA Sterling RN stated there should be a standing diet order as there is no reason pt to be NPO. Pt was pelasant and alert. 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 Hazardous Materials Handler provided brief nutrition edu on DM, pt declined detailed edu, pt has no questions at this time. Pt demonstrated fair [facility] diet knowledge and udnerstanding. Pt appeared morbidy obese, no muscle/fat wastings noted. Pt report UBW 440lb 1 month ago, questionable difference with EMR CBW 338lb. Pt stated possible richard loss as she has been "put on a diet." Pt reported usually good appetite . Current Diet Order/ Nutrition Support [id number], [facility] soft ground Pertinent Medications Lipitor, Novolog, Morphine, Zofran, Protonix, Miralax, Carafate Pertinent Labs 02/15: A1c 8.4, glucose 419 02/16: glucose 464H Nutritional Hx/Data Height 1.75 m Height (Calculated Centimeters) 175.3 Current Weight (lbs) 153.314 kg Weight (Calculated Kilograms) 153.3 Weight (Calculated Grams) 889401.2 Usual body Weight (lbs) 440 [place] Body Weight 145 Weight Status Morbidly Obese GI Symptoms Difficult in: Chewing Food Allergies Yes Skin Integrity/Comment: Berny 13. Wound care 02/16: multiple moisture wounds, 1 non-intact skin Estimated Nutritional Goals BEE in Kcals: Adj wt of IBW Calories/Kcals/Kg AdjBW 193.3lb/87.8kg Kcals Calculated 2195-2634kcal (25-30kcal/kg) Protein: Adj wt of IBW Protein Calculated 88g (1g/kg) Fluid: ml 2195-2634ml (1ml/kcal) Nutritional Problem 3. Problem Problem Malnutrition related to Etiology energy inbalance aeb Signs/Symptoms: morbid obesity, BMI >40 2. Problem Problem Difficulty chewing related to Etiology few intact teeth aeb Signs/Symptoms: pt requested ground texture 1. Problem Problem Altered nutrition related laboratory values related to Etiology DM aeb Signs/Symptoms: A1c 8.4, glucose >400 Malnutrition Related to Morbid Obesity Malnutrition related to morbid obesity BMI> or equal to 40 Query Text:(Any 1 Criteria met) Malnutrition related to morbid obesity Yes Intervention/Recommendation Comments 1. Recommend [id number] to rpomtoe glycemic control while providing to meet minimal carbohydrate needs. 2. Discussed diet texture with pt, pt requested [facility] soft ground texture as pt only has few intact teeth. 3. Provided brief nutrition edu, pt demonstrated fair understanding. No further qusetions at this time. 4. 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 EMR listed "shellfish derived" only. ANIA Sterling and FNS notified . Expected Outcomes/Goals Expected Outcomes/Goals 1. PO intake to meet at least 75% of estimated nutritinoal eneds.
[2017-02-20] MEDS: Sodium Chloride 0.9% 1,000 ML IV SCH (10:43)
[2017-02-20] MEDS: Pantoprazole 40 mg EC Tab PO SCH (11:00)
[2017-02-20] MEDS: LANOLIN TP SCH ×2 (11:10→17:39)
[2017-02-20] MEDS: Hydrogel 3 oz Tube TP SCH ×2 (11:11→17:38)
[2017-02-20] MEDS: Lactobacillus Rhamnosus 10 Billion CFU Capsule PO SCH (11:13)
[2017-02-21] MEDS: Atorvastatin Calcium 10 MG TAB PO SCH ×2 (02:18→21:01)
[2017-02-21] MEDS: INSULIN ASPART SLIDING SCALE 100 UNITS/ML UNIT SUBQ SCH ×4 (06:43→21:03)
[2017-02-21] MEDS: Lactobacillus Rhamnosus 10 Billion CFU Capsule PO SCH (09:25)
[2017-02-21] MEDS: Aspirin 81mg Chewable Tab PO SCH (09:25)
[2017-02-21] MEDS: NIFEdipine 30 mg ER Tab PO SCH (09:25)
[2017-02-21] MEDS: Insulin Detemir 100 units/mL 10mL Vial SUBQ SCH ×2 (09:26→17:51)
[2017-02-21] MEDS: Pantoprazole 40 mg EC Tab PO SCH (09:26)
[2017-02-21] MEDS: POLYETHYLENE GLYCOL 3350 17 GM PACK PO SCH ×2 (09:26→17:49)
[2017-02-21] MEDS: Hydrogel 3 oz Tube TP SCH (09:33)
[2017-02-21] MEDS: LANOLIN TP SCH (09:39)
--- NOTE | 2017-02-21 21:53 | Internal Medicine Prog Note ---
Internal Medicine Subjective - Subjective Service Date: 02/21/17 Patient is:: awake, verbal Per staff patient has:: no adverse event, tolerating meds Internal Medicine Objective - Results Result Diagrams: 02/17/17 08:40 02/19/17 11:21 Recent Labs: Laboratory Last Values WBC 6.4 Th/cmm (4.8-10.8) D 02/17/17 08:40 RBC 3.29 Mil/cmm (3.80-5.20) L 02/17/17 08:40 Hgb 9.9 gm/dL (12-16) L 02/17/17 08:40 Hct 29.9 % (41.0-60) L 02/17/17 08:40 MCV 91.0 fl (81-100) 02/17/17 08:40 MCH 30.1 pg (27.0-31.0) 02/17/17 08:40 MCHC Differential 33.0 pg (28.0-36.0) 02/17/17 08:40 RDW 15.1 % (11.5-20.0) 02/17/17 08:40 Plt Count 288 Th/cmm (150-400) 02/17/17 08:40 MPV 7.3 fl 02/17/17 08:40 Neutrophils % 53.8 % (40.0-80.0) 02/17/17 08:40 Lymphocytes % 30.4 % (20.0-50.0) 02/17/17 08:40 Monocytes % 9.5 % (2.0-10.0) 02/17/17 08:40 Eosinophils % 5.7 % (0.0-5.0) H 02/17/17 08:40 Basophils % 0.6 % (0.0-2.0) 02/17/17 08:40 PT 10.3 SECONDS (9.5-11.5) 02/15/17 14:30 INR 0.99 (0.5-1.4) 02/15/17 14:30 Sodium 136 mEq/L (136-145) 02/19/17 11:21 Potassium 4.9 mEq/L (3.5-5.1) 02/19/17 11:21 Chloride 104 mEq/L (98-107) 02/19/17 11:21 Carbon Dioxide 27.7 mEq/L (21.0-31.0) 02/19/17 11:21 Anion Gap 9.2 (7.0-16.0) 02/19/17 11:21 BUN 21 mg/dL (7-25) 02/19/17 11:21 Creatinine 0.9 mg/dL (0.6-1.2) 02/19/17 11:21 Est GFR ( Amer) > 60.0 ml/min (>90) 02/19/17 11:21 Est GFR (Non-Af Amer) > 60.0 ml/min 02/19/17 11:21 BUN/Creatinine Ratio 23.3 02/19/17 11:21 Glucose 428 mg/dL (70-105) H 02/19/17 17:41 POC Glucose 294 MG/DL (70 - 105) H 02/21/17 20:59 Hemoglobin A1c % 8.4 % (4.0-6.0) H 02/15/17 14:30 Calcium 8.6 mg/dL (8.6-10.3) 02/19/17 11:21 Total Bilirubin 0.2 mg/dL (0.3-1.0) L 02/19/17 11:21 AST 11 U/L (13-39) L 02/19/17 11:21 ALT 9 U/L (7-52) 02/19/17 11:21 Alkaline Phosphatase 117 U/L (34-104) H 02/19/17 11:21 Creatine Kinase 85 U/L (30-223) 02/15/17 14:30 Troponin I 0.01 ng/mL (0.01-0.05) 02/15/17 14:30 B-Natriuretic Peptide 73.4 pg/mL (5.0-100.0) 02/15/17 14:30 Total Protein 6.1 gm/dL (6.0-8.3) 02/19/17 11:21 Albumin 2.8 gm/dL (3.7-5.3) L 02/19/17 11:21 Globulin 3.3 gm/dL 02/19/17 11:21 Albumin/Globulin Ratio 0.9 (1.0-1.8) L 02/19/17 11:21 Triglycerides 248 mg/dL (<150) H 02/15/17 14:30 Cholesterol 194 mg/dL (<200) 02/15/17 14:30 LDL Cholesterol Direct 116 mg/dL (75-193) 02/15/17 14:30 HDL Cholesterol 53 mg/dL (23-92) 02/15/17 14:30 Amylase 58 U/L (29-103) 02/15/17 14:30 Lipase 10 U/L (11-82) L 02/15/17 14:30 Urine Source CLEAN C 02/15/17 15:15 Urine Color YELLOW 02/15/17 15:15 Urine Clarity CLOUDY (CLEAR) H 02/15/17 15:15 Urine pH 5.5 (4.6 - 8.0) 02/15/17 15:15 Ur Specific [place] 1.020 (1.005-1.030) 02/15/17 15:15 Urine Protein >=300 mg/dL (NEGATIVE) 02/15/17 15:15 Urine Glucose (UA) >=1000 mg/dL (NEGATIVE) H 02/15/17 15:15 Urine Ketones NEGATIVE mg/dL (NEGATIVE) 02/15/17 15:15 Urine Blood LARGE (NEGATIVE) H 02/15/17 15:15 Urine Nitrate NEGATIVE (NEGATIVE) 02/15/17 15:15 Urine Bilirubin NEGATIVE (NEGATIVE) 02/15/17 15:15 Urine Urobilinogen 0.2 E.U./dL (0.2 - 1.0) 02/15/17 15:15 Ur Leukocyte Esterase TRACE (NEGATIVE) H 02/15/17 15:15 Urine RBC 5-10 /hpf (0-5) H 02/15/17 15:15 Urine WBC 6-10 /hpf (0-5) H 02/15/17 15:15 Ur Epithelial Cells NONE SEEN /lpf (FEW) 02/15/17 15:15 Urine Bacteria FEW /hpf (NONE SEEN) 02/15/17 15:15 Urine Yeast MANY /hpf (NONE SEEN) H 02/15/17 15:15 - Physical Exam Vitals and I&O: Vital Signs Temp 98.8 F 02/21/17 18:00 Pulse 78 02/21/17 21:02 Resp 20 02/21/17 18:00 BP 178/98 02/21/17 21:02 Pulse Ox 98 02/21/17 18:00 Intake & Output 10/02/21/17 02/22/17 06:59 18:59 06:59 Intake Total 1000 860 Output Total 1800 Balance 1000 -940 Weight (lbs) 151.953 kg 151.953 kg Intake: Intake, IV Amount 1000 Sodium Chloride 0.9% 1, 1000 000 ml @ 100 mls/hr IV . Q10H [facility] Rx#:[id number] Oral 860 Output: Urine 1800 Other: Stool Characteristics Soft Brown Active Medications: Current Medications Acetaminophen (Tylenol) 650 mg PO Q4HR PRN PRN Reason: Pain Or Fever above 101 Stop: 04/16/17 20:04 Last Admin: 02/16/17 09:46 Dose: 650 mg Al Hydrox/Mg Hydrox/Simethicone (Maalox) 30 ml PO Q6HR PRN PRN Reason: Dyspepsia Stop: 04/16/17 20:04 Albuterol Sulfate (Albuterol 2.5mg/3ml Neb Ud) 2.5 mg HHN DAILY [facility] Stop: 04/17/17 08:59 Allopurinol (Zyloprim) 100 mg PO DAILY [facility] Stop: 04/17/17 08:59 Last Admin: 02/21/17 09:24 Dose: 100 mg Aspirin (Aspirin Chewable) 81 mg PO DAILY [facility] Stop: 04/17/17 08:59 Last Admin: 02/21/17 09:25 Dose: 81 mg Atorvastatin Calcium (Lipitor) 20 mg PO HS [facility] Stop: 04/16/17 20:59 Last Admin: 02/21/17 21:01 Dose: 20 mg Baclofen (Lioresal) 10 mg PO QID [facility] Stop: 04/16/17 20:59 Last Admin: 02/21/17 21:02 Dose: 10 mg Bandage/Support Products (Hydrogel) 1 appl TP DAILY [facility] Stop: 04/17/17 08:59 Last Admin: 02/21/17 09:33 Dose: 1 appl Donepezil HCl (Aricept) 10 mg PO DAILY [facility] Stop: 04/17/17 08:59 Last Admin: 02/21/17 09:25 Dose: 10 mg Enalapril Maleate (Vasotec) 20 mg PO TID [facility] Stop: 04/21/17 20:59 Last Admin: 02/21/17 21:01 Dose: 20 mg Gabapentin (Neurontin) 100 mg PO TID [facility] Stop: 04/16/17 20:59 Last Admin: 02/21/17 21:29 Dose: 100 mg Hydralazine HCl (Apresoline) 50 mg PO TID [facility] Stop: 04/16/17 20:59 Last Admin: 02/21/17 21:02 Dose: 50 mg Hydralazine HCl (Apresoline 20 Mg/Ml) 10 mg IV Q4H PRN PRN Reason: SBP >160 AND/OR DBP > 100 Stop: 04/20/17 12:23 Last Admin: 02/20/17 17:57 Dose: 10 mg Sodium Chloride (Nacl 0.9%) 1,000 mls @ 100 mls/hr IV .Q10H [facility] Stop: 04/16/17 20:14 Last Infusion: 02/21/17 06:59 Dose: Infused Insulin Aspart (Novolog Insulin Sliding Scale) 0 units SUBQ ACHS [facility] PRN Reason: Protocol Stop: 04/16/17 20:59 Last Admin: 02/21/17 21:03 Dose: 6 units Insulin Detemir (Levemir Insulin) 25 units SUBQ BID [facility] PRN Reason: Protocol Stop: 04/19/17 16:59 Last Admin: 02/21/17 17:51 Dose: 25 unit Lactobacillus Rhamnosus (Culturelle) 1 each PO DAILY [facility] Stop: 04/20/17 08:59 Last Admin: 02/21/17 09:25 Dose: 1 each Levofloxacin (Levaquin) 500 mg PO Q24H [facility] Stop: 04/19/17 17:59 Last Admin: 02/21/17 17:49 Dose: 500 mg Miscellaneous (Misc Topical Product) 0 appl TP DAILY [facility] Stop: 04/18/17 08:59 Last Admin: 02/21/17 09:39 Dose: 1 appl Miscellaneous (Probiotic Screen) 1 ea MC PRN PRN PRN Reason: PROTOCOL Stop: 04/19/17 16:26 Morphine Sulfate (Morphine) 4 mg IV Q6H PRN PRN Reason: Severe Pain Nifedipine (Procardia Xl) 60 mg PO DAILY [facility] Stop: 04/21/17 08:59 Last Admin: 02/21/17 09:25 Dose: 60 mg Ondansetron HCl (Zofran Odt) 4 mg PO TID PRN PRN Reason: NV Last Admin: 02/16/17 12:35 Dose: 4 mg Ondansetron HCl (Zofran) 4 mg IV Q8H PRN PRN Reason: Nausea / Vomiting Stop: 04/16/17 20:04 Pantoprazole Sodium (Protonix) 40 mg PO DAILY [facility] Stop: 04/17/17 08:59 Last Admin: 02/21/17 09:26 Dose: 40 mg Polyethylene Glycol (Miralax) 17 gm PO BID [facility] Stop: 04/17/17 08:59 Last Admin: 02/21/17 17:49 Dose: 17 gm Sucralfate (Carafate) 1 gm PO BIDAC [facility] Stop: 04/17/17 07:29 Last Admin: 02/21/17 17:49 Dose: 1 gm General: weak, alert HEENT: NC/AT, PERRLA Neck: Supple Lungs: CTAB Cardiovascular: RRR, Normal S1, Normal S2, without murmur Abdomen: soft, non-tender, non-distended Extremities: excoriation Neurological: no change Internal Medicine Assmt/Plan - Assessment Assessment: NAUSEA AND VOMITING (Acute) hyponatremia - Plan Plan: cpm Nutritional Asmnt/Malnutr-PDOC - Dietary Evaluation Malnutrition Findings (Please click <Entered> for more info): Nutritional Asmnt/Malnutrition Start: 02/16/17 14: 29 Text: Status: Complete Freq: Document 02/16/17 14:29 GSUN (Rec: 02/16/17 14:52 GSUN [id number]) Nutritional Asmnt/Malnutrition Patient General Information Nutritional Screening Consult Diagnosis ER: hyponatremia, N/V, uncontrolled DM, dehydration Pertinent Medical Hx/Surgical Hx ER report: HTN, DM, dyslipidemia, PUD/GERD, dementia, GI bleeds Subjective Information 66 [address] consult for A1c 8.4. Family and fan balancer Dale at bedside during inital visit. Pt with few teeth intact, requested for ground diet, racebook writer explained levels of diet texture. Pt did not have a diet order during visit, however lunch tray at bedside and pt finished soup. Spoke to ANIA Sterling, RN stated there should be a standing diet order as there is no reason pt to be NPO. Pt was pelasant and alert. 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 Lift Electrician provided brief nutrition edu on DM, pt declined detailed edu, pt has no questions at this time. Pt demonstrated fair [facility] diet knowledge and udnerstanding. Pt appeared morbidy obese, no muscle/fat wastings noted. Pt report UBW 440lb 1 month ago, questionable difference with EMR CBW 338lb. Pt stated possible richard loss as she has been "put on a diet." Pt reported usually good appetite . Current Diet Order/ Nutrition Support [id number], [facility] soft ground Pertinent Medications Lipitor, Novolog, Morphine, Zofran, Protonix, Miralax, Carafate Pertinent Labs 02/15: A1c 8.4, glucose 419 02/16: glucose 464H Nutritional Hx/Data Height 1.75 m Height (Calculated Centimeters) 175.3 Current Weight (lbs) 153.314 kg Weight (Calculated Kilograms) 153.3 Weight (Calculated Grams) 945993.2 Usual body Weight (lbs) 440 [place] Body Weight 145 Weight Status Morbidly Obese GI Symptoms Difficult in: Chewing Food Allergies Yes Skin Integrity/Comment: Berny [place]. Wound care 02/16: multiple moisture wounds, 1 non-intact skin Estimated Nutritional Goals BEE in Kcals: Adj wt of IBW Calories/Kcals/Kg AdjBW 193.3lb/87.8kg Kcals Calculated 2195-2634kcal (25-30kcal/kg) Protein: Adj wt of IBW Protein Calculated 88g (1g/kg) Fluid: ml 2195-2634ml (1ml/kcal) Nutritional Problem 3. Problem Problem Malnutrition related to Etiology energy inbalance aeb Signs/Symptoms: morbid obesity, BMI >40 2. Problem Problem Difficulty chewing related to Etiology few intact teeth aeb Signs/Symptoms: pt requested ground texture 1. Problem Problem Altered nutrition related laboratory values related to Etiology DM aeb Signs/Symptoms: A1c 8.4, glucose >400 Malnutrition Related to Morbid Obesity Malnutrition related to morbid obesity BMI> or equal to 40 Query Text:(Any 1 Criteria met) Malnutrition related to morbid obesity Yes Intervention/Recommendation Comments 1. Recommend [id number] to rpomtoe glycemic control while providing to meet minimal carbohydrate needs. 2. Discussed diet texture with pt, pt requested [facility] soft ground texture as pt only has few intact teeth. 3. Provided brief nutrition edu, pt demonstrated fair understanding. No further qusetions at this time. 4. 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 EMR listed "shellfish derived" only. ANIA Sterling and [facility] notified . Expected Outcomes/Goals Expected Outcomes/Goals 1. PO intake to meet at least 75% of estimated nutritinoal eneds.
[2017-02-22 06:31] LABS: % EOSINOPHILS 4.3 % (0.0-5.0); % LYMPHOCYTES 25.7 % (20.0-50.0); % MONOCYTES 8.4 % (2.0-10.0); % NEUTROPHILS 60.6 % (40.0-80.0); HEMOGLOBIN 9.4 gm/dL (12-16); MEAN CELL VOLUME 91.1 fl (81-100); MEAN CORPUSCULAR HEMOGLOBIN 29.6 pg (27.0-31.0); MEAN CORPUSCULAR HGB CONC 32.5 pg (28.0-36.0); MEAN PLATELET VOLUME 7.3 fl; NEUTROPHILE ABSOLUTE 4.4 Th/cmm (1.8-8.0); PLATELET COUNT 286 Th/cmm (150-400); RED BLOOD COUNT 3.19 Mil/cmm (3.80-5.20); RED CELL DISTRIBUTION WIDTH 15.6 % (11.5-20.0); WHITE BLOOD COUNT 7.3 Th/cmm (4.8-10.8)
[2017-02-22] MEDS: INSULIN ASPART SLIDING SCALE 100 UNITS/ML UNIT SUBQ SCH ×2 (06:31→11:47)
[2017-02-22 06:47] LABS: ANION GAP 8.2 (7.0-16.0); BUN - UREA NITROGEN 22 mg/dL (7-25); CALCIUM SERUM 8.5 mg/dL (8.6-10.3); CARBON DIOXIDE 26.6 mEq/L (21.0-31.0); CHLORIDE 105 mEq/L (98-107); GLUCOSE 280 mg/dL (70-105); POTASSIUM SERUM 4.8 mEq/L (3.5-5.1); SODIUM SERUM 135 mEq/L (136-145)
--- NOTE | 2017-02-22 08:46 | General Progress Note ---
Subjective - Review of Systems Events since last encounter: patient awake alert no distress Objective - Results Result Diagrams: 02/22/17 06:00 02/22/17 06:00 Recent Labs: Laboratory Last Values WBC 7.3 Th/cmm (4.8-10.8) 02/22/17 06:00 RBC 3.19 Mil/cmm (3.80-5.20) L 02/22/17 06:00 Hgb 9.4 gm/dL (12-16) L 02/22/17 06:00 Hct 29.0 % (41.0-60) L 02/22/17 06:00 MCV 91.1 fl (81-100) 02/22/17 06:00 MCH 29.6 pg (27.0-31.0) 02/22/17 06:00 MCHC Differential 32.5 pg (28.0-36.0) 02/22/17 06:00 RDW 15.6 % (11.5-20.0) 02/22/17 06:00 Plt Count 286 Th/cmm (150-400) 02/22/17 06:00 MPV 7.3 fl 02/22/17 06:00 Neutrophils % 60.6 % (40.0-80.0) 02/22/17 06:00 Lymphocytes % 25.7 % (20.0-50.0) 02/22/17 06:00 Monocytes % 8.4 % (2.0-10.0) 02/22/17 06:00 Eosinophils % 4.3 % (0.0-5.0) 02/22/17 06:00 Basophils % 1.0 % (0.0-2.0) 02/22/17 06:00 PT 10.3 SECONDS (9.5-11.5) 02/15/17 14:30 INR 0.99 (0.5-1.4) 02/15/17 14:30 Sodium 135 mEq/L (136-145) L 02/22/17 06:00 Potassium 4.8 mEq/L (3.5-5.1) 02/22/17 06:00 Chloride 105 mEq/L (98-107) 02/22/17 06:00 Carbon Dioxide 26.6 mEq/L (21.0-31.0) 02/22/17 06:00 Anion Gap 8.2 (7.0-16.0) 02/22/17 06:00 BUN 22 mg/dL (7-25) 02/22/17 06:00 Creatinine 1.0 mg/dL (0.6-1.2) 02/22/17 06:00 Est GFR ( Amer) > 60.0 ml/min (>90) 02/22/17 06:00 Est GFR (Non-Af Amer) 59.1 ml/min 02/22/17 06:00 BUN/Creatinine Ratio 22.0 02/22/17 06:00 Glucose 280 mg/dL (70-105) H 02/22/17 06:00 POC Glucose 262 MG/DL (70 - 105) H 02/22/17 05:36 Hemoglobin A1c % 8.4 % (4.0-6.0) H 02/15/17 14:30 Calcium 8.5 mg/dL (8.6-10.3) L 02/22/17 06:00 Total Bilirubin 0.2 mg/dL (0.3-1.0) L 02/19/17 11:21 AST 11 U/L (13-39) L 02/19/17 11:21 ALT 9 U/L (7-52) 02/19/17 11:21 Alkaline Phosphatase 117 U/L (34-104) H 02/19/17 11:21 Creatine Kinase 85 U/L (30-223) 02/15/17 14:30 Troponin I 0.01 ng/mL (0.01-0.05) 02/15/17 14:30 B-Natriuretic Peptide 73.4 pg/mL (5.0-100.0) 02/15/17 14:30 Total Protein 6.1 gm/dL (6.0-8.3) 02/19/17 11:21 Albumin 2.8 gm/dL (3.7-5.3) L 02/19/17 11:21 Globulin 3.3 gm/dL 02/19/17 11:21 Albumin/Globulin Ratio 0.9 (1.0-1.8) L 02/19/17 11:21 Triglycerides 248 mg/dL (<150) H 02/15/17 14:30 Cholesterol 194 mg/dL (<200) 02/15/17 14:30 LDL Cholesterol Direct 116 mg/dL (75-193) 02/15/17 14:30 HDL Cholesterol 53 mg/dL (23-92) 02/15/17 14:30 Amylase 58 U/L (29-103) 02/15/17 14:30 Lipase 10 U/L (11-82) L 02/15/17 14:30 Urine Source CLEAN C 02/15/17 15:15 Urine Color YELLOW 02/15/17 15:15 Urine Clarity CLOUDY (CLEAR) H 02/15/17 15:15 Urine pH 5.5 (4.6 - 8.0) 02/15/17 15:15 Ur Specific Bradford 1.020 (1.005-1.030) 02/15/17 15:15 Urine Protein >=300 mg/dL (NEGATIVE) 02/15/17 15:15 Urine Glucose (UA) >=1000 mg/dL (NEGATIVE) H 02/15/17 15:15 Urine Ketones NEGATIVE mg/dL (NEGATIVE) 02/15/17 15:15 Urine Blood LARGE (NEGATIVE) H 02/15/17 15:15 Urine Nitrate NEGATIVE (NEGATIVE) 02/15/17 15:15 Urine Bilirubin NEGATIVE (NEGATIVE) 02/15/17 15:15 Urine Urobilinogen 0.2 E.U./dL (0.2 - 1.0) 02/15/17 15:15 Ur Leukocyte Esterase TRACE (NEGATIVE) H 02/15/17 15:15 Urine RBC 5-10 /hpf (0-5) H 02/15/17 15:15 Urine WBC 6-10 /hpf (0-5) H 02/15/17 15:15 Ur Epithelial Cells NONE SEEN /lpf (FEW) 02/15/17 15:15 Urine Bacteria FEW /hpf (NONE SEEN) 02/15/17 15:15 Urine Yeast MANY /hpf (NONE SEEN) H 02/15/17 15:15 - Physical Exam Vitals and I&O: Vital Signs Temp 98.4 F 02/22/17 04:00 Pulse 73 02/22/17 04:00 Resp 18 02/22/17 04:00 BP 136/56 02/22/17 04:00 Pulse Ox 95 02/22/17 04:00 Intake & Output 02/21/17 02/22/17 02/22/17 18:59 06:59 18:59 Intake Total 860 100 Output Total 1800 2300 Balance -940 -2200 Weight (lbs) 151.953 kg 149.912 kg Intake: Oral 860 100 Output: Urine 1800 2300 Other: Stool Characteristics Soft Brown Active Medications: Current Medications Acetaminophen (Tylenol) 650 mg PO Q4HR PRN PRN Reason: Pain Or Fever above 101 Stop: 04/16/17 20:04 Last Admin: 02/16/17 09:46 Dose: 650 mg Al Hydrox/Mg Hydrox/Simethicone (Maalox) 30 ml PO Q6HR PRN PRN Reason: Dyspepsia Stop: 04/16/17 20:04 Albuterol Sulfate (Albuterol 2.5mg/3ml Neb Ud) 2.5 mg HHN DAILY [facility] Stop: 04/17/17 08:59 Allopurinol (Zyloprim) 100 mg PO DAILY [facility] Stop: 04/17/17 08:59 Last Admin: 02/21/17 09:24 Dose: 100 mg Aspirin (Aspirin Chewable) 81 mg PO DAILY [facility] Stop: 04/17/17 08:59 Last Admin: 02/21/17 09:25 Dose: 81 mg Atorvastatin Calcium (Lipitor) 20 mg PO HS [facility] Stop: 04/16/17 20:59 Last Admin: 02/21/17 21:01 Dose: 20 mg Baclofen (Lioresal) 10 mg PO QID [facility] Stop: 04/16/17 20:59 Last Admin: 02/21/17 21:02 Dose: 10 mg Bandage/Support Products (Hydrogel) 1 appl TP DAILY [facility] Stop: 04/17/17 08:59 Last Admin: 02/21/17 09:33 Dose: 1 appl Donepezil HCl (Aricept) 10 mg PO DAILY [facility] Stop: 04/17/17 08:59 Last Admin: 02/21/17 09:25 Dose: 10 mg Enalapril Maleate (Vasotec) 20 mg PO TID [facility] Stop: 04/21/17 20:59 Last Admin: 02/21/17 21:01 Dose: 20 mg Gabapentin (Neurontin) 100 mg PO TID [facility] Stop: 04/16/17 20:59 Last Admin: 02/21/17 21:29 Dose: 100 mg Hydralazine HCl (Apresoline) 50 mg PO TID [facility] Stop: 04/16/17 20:59 Last Admin: 02/21/17 21:02 Dose: 50 mg Hydralazine HCl (Apresoline 20 Mg/Ml) 10 mg IV Q4H PRN PRN Reason: SBP >160 AND/OR DBP > 100 Stop: 04/20/17 12:23 Last Admin: 02/20/17 17:57 Dose: 10 mg Sodium Chloride (Nacl 0.9%) 1,000 mls @ 100 mls/hr IV .Q10H [facility] Stop: 04/16/17 20:14 Last Infusion: 02/21/17 06:59 Dose: Infused Insulin Aspart (Novolog Insulin Sliding Scale) 0 units SUBQ ACHS [facility] PRN Reason: Protocol Stop: 04/16/17 20:59 Last Admin: 02/22/17 06:31 Dose: 6 units Insulin Detemir (Levemir Insulin) 25 units SUBQ BID [facility] PRN Reason: Protocol Stop: 04/19/17 16:59 Last Admin: 02/21/17 17:51 Dose: 25 unit Lactobacillus Rhamnosus (Culturelle) 1 each PO DAILY [facility] Stop: 04/20/17 08:59 Last Admin: 02/21/17 09:25 Dose: 1 each Levofloxacin (Levaquin) 500 mg PO Q24H [facility] Stop: 04/19/17 17:59 Last Admin: 02/21/17 17:49 Dose: 500 mg Miscellaneous (Misc Topical Product) 0 appl TP DAILY [facility] Stop: 04/18/17 08:59 Last Admin: 02/21/17 09:39 Dose: 1 appl Miscellaneous (Probiotic Screen) 1 ea PRN PRN PRN Reason: PROTOCOL Stop: 04/19/17 16:26 Morphine Sulfate (Morphine) 4 mg IV Q6H PRN PRN Reason: Severe Pain Nifedipine (Procardia Xl) 60 mg PO DAILY [facility] Stop: 04/21/17 08:59 Last Admin: 02/21/17 09:25 Dose: 60 mg Ondansetron HCl (Zofran Odt) 4 mg PO TID PRN PRN Reason: NV Last Admin: 02/16/17 12:35 Dose: 4 mg Ondansetron HCl (Zofran) 4 mg IV Q8H PRN PRN Reason: Nausea / Vomiting Stop: 04/16/17 20:04 Pantoprazole Sodium (Protonix) 40 mg PO DAILY [facility] Stop: 04/17/17 08:59 Last Admin: 02/21/17 09:26 Dose: 40 mg Polyethylene Glycol (Miralax) 17 gm PO BID [facility] Stop: 04/17/17 08:59 Last Admin: 02/21/17 17:49 Dose: 17 gm Sucralfate (Carafate) 1 gm PO BIDAC [facility] Stop: 04/17/17 07:29 Last Admin: 02/22/17 06:34 Dose: 1 gm General: No acute distress HEENT: Atraumatic Neck: Supple Cardiovascular: Regular rate, Normal S1 Abdomen: Bowel sounds Assessment/Plan - Problem List Patient Problems: All Active Problems NAUSEA AND VOMITING (Acute) - Assessment Assessment: NAUSEA AND VOMITING (Acute) hyponatremia - Plan Plan: cpm Nutritional Asmnt/Malnutr-PDOC - Dietary Evaluation Malnutrition Findings (Please click <Entered> for more info): Nutritional Asmnt/Malnutrition Start: 02/16/17 14: 29 Text: Status: Complete Freq: Document 02/16/17 14:29 GSUN (Rec: 02/16/17 14:52 GSUN [id number]) Nutritional Asmnt/Malnutrition Patient General Information Nutritional Screening Consult Diagnosis ER: hyponatremia, N/V, uncontrolled DM, dehydration Pertinent Medical Hx/Surgical Hx ER report: HTN, DM, dyslipidemia, PUD/GERD, dementia, GI bleeds Subjective Information 66 [address] consult for A1c 8.4. Family and ornamental plasterer helper Dale at bedside during inital visit. Pt with few teeth intact, requested for ground diet, news writer explained levels of diet texture. Pt did not have a diet order during visit, however lunch tray at bedside and pt finished soup. Spoke to ANIA Sterling, RN stated there should be a standing diet order as there is no reason pt to be NPO. Pt was pelasant and alert. 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 Oxidation Engineer provided brief nutrition edu on DM, pt declined detailed edu, pt has no questions at this time. [facility] knowledge and udnerstanding. Pt appeared morbidy obese, no muscle/fat wastings noted. Pt report UBW 440lb 1 month ago, questionable difference with EMR CBW 338lb. Pt stated possible richard loss as she has been "put on a diet." Pt reported usually good appetite . Current Diet Order/ Nutrition Support [id number], [facility] soft ground Pertinent Medications Lipitor, Novolog, Morphine, Zofran, Protonix, Miralax, Carafate Pertinent Labs 02/15: A1c 8.4, glucose 419 02/16: glucose 464H Nutritional Hx/Data Height 1.75 m Height (Calculated Centimeters) 175.3 Current Weight (lbs) 153.314 kg Weight (Calculated Kilograms) 153.3 Weight (Calculated Grams) 421167.2 Usual body Weight (lbs) 440 Lester Body Weight 145 Weight Status Morbidly Obese GI Symptoms Difficult in: Chewing Food Allergies Yes Skin Integrity/Comment: Berny 13. Wound care 02/16: multiple moisture wounds, 1 non-intact skin Estimated Nutritional Goals BEE in Kcals: Adj wt of IBW Calories/Kcals/Kg AdjBW 193.3lb/87.8kg Kcals Calculated 2195-2634kcal (25-30kcal/kg) Protein: Adj wt of IBW Protein Calculated 88g (1g/kg) Fluid: ml 2195-2634ml (1ml/kcal) Nutritional Problem 3. Problem Problem Malnutrition related to Etiology energy inbalance aeb Signs/Symptoms: morbid obesity, BMI >40 2. Problem Problem Difficulty chewing related to Etiology few intact teeth aeb Signs/Symptoms: pt requested ground texture 1. Problem Problem Altered nutrition related laboratory values related to Etiology DM aeb Signs/Symptoms: A1c 8.4, glucose >400 Malnutrition Related to Morbid Obesity Malnutrition related to morbid obesity BMI> or equal to 40 Query Text:(Any 1 Criteria met) Malnutrition related to morbid obesity Yes Intervention/Recommendation Comments 1. Recommend [id number] to rpomtoe glycemic control while providing to meet minimal carbohydrate needs. 2. Discussed diet texture with pt, pt requested [facility] soft ground texture as pt only has few intact teeth. 3. Provided brief nutrition edu, pt demonstrated fair understanding. No further qusetions at this time. 4. 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 EMR listed "shellfish derived" only. ANIA Sterling and FNS notified . Expected Outcomes/Goals Expected Outcomes/Goals 1. PO intake to meet at least 75% of estimated nutritinoal eneds.
[2017-02-22] MEDS: NIFEdipine 30 mg ER Tab PO SCH (09:46)
[2017-02-22] MEDS: Aspirin 81mg Chewable Tab PO SCH (09:48)
[2017-02-22] MEDS: Pantoprazole 40 mg EC Tab PO SCH (09:48)
[2017-02-22] MEDS: POLYETHYLENE GLYCOL 3350 17 GM PACK PO SCH (09:49)
[2017-02-22] MEDS: Lactobacillus Rhamnosus 10 Billion CFU Capsule PO SCH (09:49)
[2017-02-22] MEDS: Hydrogel 3 oz Tube TP SCH (09:53)
[2017-02-22] MEDS: LANOLIN TP SCH (09:54)
[2017-02-22] MEDS: Insulin Detemir 100 units/mL 10mL Vial SUBQ SCH (10:14)
== END 2017-02-22 14:30 | disposition home or self-care (01) | DRG 683 ==
LOC: ER 13:44 → MSI 17:25
PROVIDERS: ADMIT Internal Medicine; ATTEND Internal Medicine
DX: N17.9 Acute kidney failure, unspecified (principal); E87.1 Hypo-osmolality and hyponatremia; E44.0 Moderate protein-calorie malnutrition; F03.90 Unspecified dementia, unspecified severity, without behavioral disturbance, psychotic disturbance, mood disturbance, and anxiety; E11.65 Type 2 diabetes mellitus with hyperglycemia; E11.40 Type 2 diabetes mellitus with diabetic neuropathy, unspecified; N39.0 Urinary tract infection, site not specified; Z68.42 Body mass index [BMI] 45.0-49.9, adult; E86.0 Dehydration; I10 Essential (primary) hypertension; E78.5 Hyperlipidemia, unspecified; K21.9 Gastro-esophageal reflux disease without esophagitis; M10.9 Gout, unspecified; Z88.1 Allergy status to other antibiotic agents; Z88.6 Allergy status to analgesic agent; Z91.041 Radiographic dye allergy status; Z91.013 Allergy to seafood; Z83.3 Family history of diabetes mellitus; Z82.49 Family history of ischemic heart disease and other diseases of the circulatory system
CPT/HCPCS: 36415-UA; 71010-TC; 80048-TC; 80053-TC; 80061-TC; 81001-TC; 82150-TC; 82550-TC; 82947-TC; 82948-90; 83036-90; 83690-TC; 83880-TC; 84484-TC; 85025-TC; 85610-TC; 93005; 94760; C1751; J0360; J1815; J1956; J7030; Q0162; Z7610

== ENCOUNTER 2017-03-13 22:02 | Inpatient (IN) | payer MEDICARE, MEDICAID ==
[2017-03-13] MEDS ORDERED: Sodium Chloride 0.9% 1,000 ML IV ONE (22:47)
[2017-03-13 23:00] LABS: % BASOPHILS 0.4 % (0.0-2.0); % EOSINOPHILS 2.6 % (0.0-5.0); % LYMPHOCYTES 20.3 % (20.0-50.0); % MONOCYTES 7.2 % (2.0-10.0); % NEUTROPHILS 69.5 % (40.0-80.0); HEMATOCRIT 29.1 % (41.0-60); HEMOGLOBIN 9.4 gm/dL (12-16); MEAN CELL VOLUME 91.4 fl (81-100); MEAN CORPUSCULAR HEMOGLOBIN 29.6 pg (27.0-31.0); MEAN CORPUSCULAR HGB CONC 32.4 pg (28.0-36.0); MEAN PLATELET VOLUME 8.1 fl; NEUTROPHILE ABSOLUTE 5.5 Th/cmm (1.8-8.0); PLATELET COUNT 234 Th/cmm (150-400); RED BLOOD COUNT 3.19 Mil/cmm (3.80-5.20); RED CELL DISTRIBUTION WIDTH 15.5 % (11.5-20.0); WHITE BLOOD COUNT 7.9 Th/cmm (4.8-10.8)
[2017-03-13] MEDS ORDERED: Vancomycin HCl 1.5 GM in Sodium Chloride 0.9% 500 ML IV ONE (23:03)
[2017-03-13 23:12] LABS: ALB/GLOB RATIO 0.9 (1.0-1.8); ANION GAP 8.7 (7.0-16.0); BILIRUBIN,TOTAL 0.2 mg/dL (0.3-1.0); BUN/CREATININE RATIO 35.3; CALCIUM SERUM 8.8 mg/dL (8.6-10.3); CARBON DIOXIDE 23.1 mEq/L (21.0-31.0); CREATININE - SERUM 1.5 mg/dL (0.6-1.2); POTASSIUM SERUM 5.8 mEq/L (3.5-5.1)
[2017-03-13] MEDS ORDERED: INSULIN HUMAN REGULAR 100 UNITS/ML UNIT SUBQ ONE (23:12)
[2017-03-13] MEDS ORDERED: Acetaminophen 500 MG TAB PO ONE (23:32)
[2017-03-13] MEDS ORDERED: Fluconazole 200mg/100mL 200 MG/100 ML BAG IV ONE ×2 (23:34→23:40)
[2017-03-13 23:41] LABS: URINE BILIRUBIN NEGATIVE (NEGATIVE); URINE BLOOD MODERATE (NEGATIVE); URINE COLOR YELLOW; URINE GLUCOSE (UA) >=1000 mg/dL (NEGATIVE); URINE KETONE NEGATIVE (NEGATIVE)
[2017-03-13 23:42] LABS: URINE PH 5.5 (4.6 - 8.0); URINE PROTEIN 100 mg/dL (NEGATIVE); URINE UROBILINOGEN 0.2 E.U./dL (0.2 - 1.0)
[2017-03-13] MEDS ORDERED: Acetaminophen 500 MG TAB ONE (23:43)
[2017-03-13] MEDS ORDERED: INSULIN HUMAN REGULAR 100 UNITS/ML UNIT ONE (23:46)
[2017-03-13 23:51] LABS: URINE BACTERIA MODERATE /hpf (NONE SEEN); URINE EPITHELIAL CELLS MODERATE /lpf (FEW); URINE WBC 25-50 /hpf (0-5)
[2017-03-13 23:56] LABS: HCO3 23.3 mEq/L (20.0-26.0); pH 7.31 (7.35-7.45)
[2017-03-13 23:57] LABS: ABG SOURCE Arterial; ALLEN TEST Positive
[2017-03-14] MEDS: MICONAZOLE NITRATE 100 MG KIT VG SCH ×3 (00:24→17:19)
--- NOTE | 2017-03-14 01:19 | ER Physician Documentation ---
DATE OF SERVICE: 03/13/2017 The patient was triaged. The patient was told the patient came from senior care facility. The patient was told that her blood sugar was 561. She was given 10 units of regular insulin. Her blood sugar came down to 394 and the patient was sent over here. HISTORY OF PRESENT ILLNESS: The patient is diabetic all of her life. She is very obese. She has been more than 320 pounds or so. Many of her family members are heavy. She has mild hypertension. The patient has a Jolly catheter and she has neurogenic bladder. She is markedly obese and the Jolly has not been changed for quite some, looks dirty and needs to be changed. We will change it and send the tip for culture and sensitivity. This patient has a vaginal discharge. The patient with a family member obtained some vaginal suppository, I believe Monistat and they inserted giving rise to some relief. We will start and continue on Monistat vaginal suppository. If needed we will give some Diflucan tablet for 2 or 3 days and that should take care of it. And because of diabetes mellitus she has more chances of getting infection in the vaginal area. She does not have any other significant complaints. She has no chest pain, no palpitation, no dizziness, no evidence of any pneumonia or TB, pulmonary embolism, COPD, emphysema, bronchitis. She does have some urinary Jolly catheter as she may be having neurogenic bladder. REVIEW OF SYSTEMS: Essentially obesity is present. Hypertension is present, diabetes mellitus is present. The patient has no evidence of any heart disease, lung disease, abdomen disease. The patient has a couple of abdominal wall hernia. The umbilicus is distended and the patient is not a candidate for any kind of abdominal surgery. The patient does not have any thyroid disease, hypo or hyperthyroidism, bones and joints appears to be normal. Triage nurse examination showed vital signs to be 98.4, pulse was 94, respirations 20, blood pressure 143/61, saturation 95%. MEIDCAL HISTORY: The patient has Jolly catheter, diabetes mellitus, chronic urinary tract infection, hypertension, hypertensive heart disease. The patient's primary physician is Dr. Shay Wright at [address] [place] [address], [address], telephone #[phone], fax # [phone]. The patient has [employer] insurance. The patient's son was with the patient. The patient's dentist is [facility], [address] ALLERGIES: IODINE, SHELLFISH, ROCEPHIN and DILAUDID. The patient comes here with the following diagnoses: Urinary tract infection, difficulty in walking, muscle wasting, atrophy, unspecified osteoarthritis. The patient was sent from longterm over here by Dr. Wright. She does not have any pain. She does not have any surgery done in the past. On physical examination, the patient appears to be awake, alert, oriented, not in any acute cardiorespiratory distress. Conjunctivae pink. Sclerae white. HEENT is normal. Jugular venous pressure is normal. There is no cyanosis, petechiae, ecchymosis. The patient is morbidly obese. No edema, no cyanosis. No evidence of any ulcers, cancers, ulcers or tumors seen. No meningeal signs. Central nervous systems is otherwise benign and negative. Moves all the extremities. No meningeal signs and plantars are downgoing. Chest is clear. Trachea is in central, fairly good air entry. A chest x-ray does not show any definite evidence of pneumonia or congestive heart failure findings. The patient also has allergy to IODINE DYE AND SHELLFISH. She also has some dementia, but I do not find any dementia at the present moment, she answered all the questions fairly correctly. She was sent here by Dr. Wright for examination and treatment . Abdomen is obese, otherwise benign and negative except for 2 abdominal wall hernia. Liver, spleen not enlarged. No fluid in the abdominal cavity. Lungs are clear. No rales, rhonchi, bronchial wheezing. Heart reveals normal heart sounds without any third heart sound. No abnormal murmur, click or rub. CLINICAL IMPRESSION: The patient has uncontrolled diabetes mellitus. We will need to rule out the patient has uncontrolled diabetes mellitus as a result of diabetic ketoacidosis or as a result of urinary tract infection, most likely urinary tract infection as a major diabetic worse. We will give the patient insulin and 10 units of insulin brought her blood sugar down from 561 to 394. So, most likely it is an infection that must be causing the trouble to the patient. We will give the patient antibiotic after the urine is collected and we will give the treatment for blood pressure also. The patient's other diagnoses includes morbid obesity, surgery done in both eyes, most likely for a retinal diabetic retinopathy with laser therapy. The patient's son was in the room and I believe his name is Shaka Collins, his cell phone number [phone]. He is the son, the daughter's name is Karina Denis, home number is [phone]. Next of kin daughter is Komal Collins, daughter, . We will give the patient antibiotics, blood coverage, insulin coverage and other treatment as needed. The showed that hematocrit is 29.1, very low. WBC 7.9, neutrophils 69.5, lymphocytes is 20.3. Other labs are not yet back, once back I will redictate it. JOB# [id number]
[2017-03-14 02:16] VITALS: BP 130/67
[2017-03-14] MEDS ORDERED: Pneumococcal Vaccine 0.5 mL Vial IM ONE (02:29)
[2017-03-14] MEDS: Sodium Chloride 0.9% 1,000 ML IV SCH (02:53)
[2017-03-14] MEDS ORDERED: INSULIN ASPART, RECOMBINANT 100 UNITS/ML SUBQ ONE (03:18)
[2017-03-14] MEDS ORDERED: Levofloxacin 250mg/50mL 250 MG/50 ML BAG IV ONE (03:45)
--- NOTE | 2017-03-14 04:39 | ER Physician Documentation ---
DATE OF SERVICE: 03/13/[address] Wright. We just got some lab results finally. Hemoglobin A1c is very high at 9.4, that means the patient needs some long-acting insulin. Please note that the patient was getting 50 units of long-acting insulin along with [address] Wright please note that this was our protocol with which the patient was doing good, so you decide what further to do. The patient's white count is 7.9, hemoglobin is 9.4, hematocrit is 29.1, most likely the patient is anemic and because of dehydration, the hematocrit will further fall and may need Ferrlecit or blood transfusion, platelet count is 234,000, neutrophils 69.5. Blood gas we did it to make sure that the patient does not have any diabetic ketoacidosis, but pH is 7.31, pCO2 49, pO2 is 81, bicarbonate is 23.3, base excess -2, percent saturation is 95%, it means the patient in all probability does not have any evidence of diabetic ketoacidosis. This is some degree of respiratory acidosis and some degree of metabolic acidosis is present, but patient's sodium was 130, potassium was 5.8. The patient is getting normal saline. Potassium is not given because once we give insulin; the potassium should go into cellular, and should come back down to near normal level or at the upper limit of normal. One liter of saline is going on and the second liter should be going on after that. Because of the patient's dehydration status, blood sugar level done at 2252 hours is 436, but now I believe the sugar was pretty down. The BUN is 53, creatinine 1.5, and calcium is 8.8. Total protein is 6.2, albumin is 3, and alkaline phosphatase is 1.3. EKG was done showing normal sinus rhythm and poor R-wave progression from V1-V3, but no definite LA can be elicited from this EKG. I just also got some urine report, which showed glucose of more than 1 gram in the urine, moderate degree of blood is present in the urine, nitrite is positive in the urine, leukocyte esterase is trace, 25-50 wbc's in the urine, believe patient has urinary tract infection, and patient has uncontrolled diabetes mellitus, but a protein level is 100 mg percentage, so she has both a urinary tract infection and diabetes mellitus with renal involvement diabetic nephropathy is also present, so that explains the patient's metabolic encephalopathy and respiratory acidosis being present. Thank you again, at the present moment, there is no diabetic ketoacidosis present, we will check the urine ketone level, and the nurse will inform me if it is present, and we might have to do the diabetic ketoacidosis protocol. Right now, we do not have any lactic acid level or ketones in the urine level. I will follow the labs for you Dr. Wright. JOB# [id number]
[2017-03-14 05:10] LABS: % BASOPHILS 0.5 % (0.0-2.0); % EOSINOPHILS 4.3 % (0.0-5.0); % LYMPHOCYTES 30.5 % (20.0-50.0); % MONOCYTES 8.3 % (2.0-10.0); % NEUTROPHILS 56.4 % (40.0-80.0); HEMATOCRIT 27.1 % (41.0-60); HEMOGLOBIN 8.8 gm/dL (12-16); MEAN CELL VOLUME 90.6 fl (81-100); MEAN CORPUSCULAR HEMOGLOBIN 29.4 pg (27.0-31.0); MEAN CORPUSCULAR HGB CONC 32.4 pg (28.0-36.0); MEAN PLATELET VOLUME 7.6 fl; NEUTROPHILE ABSOLUTE 3.8 Th/cmm (1.8-8.0); PLATELET COUNT 206 Th/cmm (150-400); RED BLOOD COUNT 2.99 Mil/cmm (3.80-5.20); RED CELL DISTRIBUTION WIDTH 15.2 % (11.5-20.0); WHITE BLOOD COUNT 6.6 Th/cmm (4.8-10.8)
[2017-03-14 05:21] LABS: ALB/GLOB RATIO 0.8 (1.0-1.8); ANION GAP 8.2 (7.0-16.0); BILIRUBIN,TOTAL 0.2 mg/dL (0.3-1.0); BUN/CREATININE RATIO 39.2; CALCIUM SERUM 8.5 mg/dL (8.6-10.3); CREATININE - SERUM 1.3 mg/dL (0.6-1.2); POTASSIUM SERUM 5.2 mEq/L (3.5-5.1)
--- NOTE | 2017-03-14 07:46 | Diagnostic Imaging Report ---
CHEST X-RAY: AP view INDICATION: Pneumonia COMPARISON: 02/15/2017 FINDINGS: Suboptimal lung volumes are seen with mild increased interstitial lung markings. No focal consolidation or pleural effusions. Heart size is normal. Degenerative changes of spine are noted. IMPRESSION: Suboptimal lung volumes and mild increased interstitial lung markings. Findings are nonspecific and may be related to chronic changes. No focal consolidations identified. No evidence of pepito CHF.
[2017-03-14] MEDS: Aspirin 81mg Chewable Tab PO SCH (09:21)
[2017-03-14] MEDS: Pantoprazole 40 mg EC Tab PO SCH (09:23)
[2017-03-14] MEDS: POLYETHYLENE GLYCOL 3350 17 GM PACK PO SCH ×2 (09:23→17:12)
[2017-03-14] MEDS: INSULIN ASPART SLIDING SCALE 100 UNITS/ML UNIT SUBQ SCH ×3 (12:28→22:13)
--- NOTE | 2017-03-14 13:30 | History & Physical ---
ADMIT DATE: 03/14/2017 CHIEF COMPLAINT: The patient was admitted on 03/13/2017 from the ER. The patient came from the alf with a very high sugar, found to have UTI and also found to have hyponatremia and prerenal azotemia. HISTORY OF PRESENT ILLNESS: This patient is an elderly female, very well known to me. The patient is very heavyset, 320 pounds, and the patient has history of hypertension, history of neurogenic bladder. She has a Jolly catheter and also recently treated for vaginal infection with Diflucan. The patient also has a history of abdominal wall hernia in the past. REVIEW OF SYSTEMS: Essentially the patient is unable to verbalize any problems. The patient was found to have very high sugar, difficult to control in the alf and the persistently requiring more insulin. PAST MEDICAL HISTORY: As enumerated above, history of hypertension, history of diabetes, history of recurrent UTI, history of hypertensive cardiovascular disease, history of obesity and history of neurogenic bladder and Jolly catheter. MEDICATIONS: See the reconciliation sheet. PHYSICAL EXAMINATION: GENERAL: The patient is awake, alert. The patient not in acute distress. VITAL SIGNS: Stable. HEENT: Head examination was normal. ENT Normal. NECK: Supple, nontender. LUNGS: Bilaterally decreased breath sounds. CARDIOVASCULAR SYSTEM: S1, S2 heard. ABDOMEN: Soft. CENTRAL NERVOUS SYSTEM: Somewhat decreased sensorium. DIAGNOSES: 1. Uncontrolled diabetes. 2. UTI. 3. Hyponatremia. 4. Prerenal azotemia. 5. Malnutrition. 6. History of diabetic retinopathy and possible diabetic nephropathy. PLAN: The patient is going to be admitted. She will be given fluids and antibiotics and follow up with ID doctor and also the renal doctor and I will follow the patient. JOB# [id number]
--- NOTE | 2017-03-14 19:48 | Consultation ---
DATE OF CONSULTATION: 03/13/2017 REFERRING PHYSICIAN: Dr. Wright. REASON FOR CONSULTATION: UTI. HISTORY OF PRESENT ILLNESS: The patient is a 66-year-old female with a past medical history of obesity, sleep apnea, diabetes mellitus type 2, sent from the nursing facility for uncontrolled diabetes mellitus with a blood sugar of 561. She also had a Jolly catheter, which was not removed for long time. The urine was started leaking, so Jolly was changed. Urinalysis showed pyuria and bacteria and candiduria. The patient was on Diflucan. ID consult was called for further antibiotic management. PAST MEDICAL HISTORY: Diabetes mellitus type 2, hypertension, obesity, suspect sleep apnea. REVIEW OF SYSTEMS: GENERAL: The patient has no fever, no chills. The patient has some nasal discharge and was getting treatment Monistat. Otherwise, no fever, no chills. She does not feel well. MEDICATIONS: As per medication reconciliation sheet. Antibiotic rendon, the patient has received Diflucan. ALLERGIES: THE PATIENT IS ALLERGIC TO ROCEPHIN, HYDROMORPHONE, IODINE, SHELLFISH. REVIEW OF SYSTEMS GENERAL: The patient has no fever, no chills. HEENT: No diplopia, no photophobia, no sore throat. RESPIRATORY: No cough. CARDIOVASCULAR: No chest pain or palpitation. GASTROINTESTINAL: No nausea, no vomiting, no diarrhea, no constipation. GENITOURINARY: No dysuria. NEUROLOGIC: No headache, no dizziness, no focal weakness. PHYSICAL EXAMINATION: VITAL SIGNS: Temperature 98.4, pulse of 94, respirations 20, blood pressure 143/61. GENERAL: The patient is obese. HEENT: Head is normocephalic, atraumatic. Oral cavity moist, pink tongue. Eyes: Pallor is present, no icterus. NECK: Supple, no JVD, no carotid bruit. Trachea in midline. CHEST: Bilateral breath sounds. No crackles or wheezing. NEUROLOGICAL: S1, S2 within normal limits. Regular rhythm. No murmur, no gallop. ABDOMEN: Soft, nontender, nondistended. Bowel sounds present. Low blood. EXTREMITIES: No cyanosis, no clubbing, no edema. NEUROLOGIC: Alert, awake. LABORATORY DATA: Current lab shows WBC count is 7900, hemoglobin 9.4, hematocrit 29.1, platelets are 234,000, neutrophil is 69.5%. Sodium is 134, potassium 5.8, chloride 104, bicarbonate is 23, BUN is 53, creatinine 1.5, glucose is 436. Urinalysis showed hazy urine with wbc's 25-50 and moderate bacteria, moderate yeast. IMPRESSION: 1. Uncontrolled glucose, diabetes mellitus type 2. 2. Morbid obesity. 3. Urinary tract infection. 4. Hypertension. 5. Anemia. 6. Suspected sleep apnea. RECOMMENDATIONS: We will start Levaquin and Diflucan, these can be changed to p.o. if she can tolerate oral medicine for 10 days. JOB# [id number] ANDREINA
[2017-03-14] MEDS: Atorvastatin Calcium 10 MG TAB PO SCH (21:54)
[2017-03-14] MEDS: Fluconazole 100mg/50mL 100 MG/50 ML BOTTLE IV SCH (21:55)
[2017-03-15] MEDS: Sodium Chloride 0.9% 1,000 ML IV SCH (04:36)
[2017-03-15] MEDS: INSULIN ASPART SLIDING SCALE 100 UNITS/ML UNIT SUBQ SCH ×4 (06:57→21:04)
[2017-03-15] MEDS ORDERED: Levofloxacin 250 mg/50 mL Premix Bag IV SCH (09:00)
--- NOTE | 2017-03-15 09:12 | General Progress Note ---
Subjective - Review of Systems Events since last encounter: patient awake alert denies pain Objective - Results Result Diagrams: 03/14/17 04:50 03/14/17 04:50 Recent Labs: Laboratory Last Values WBC 6.6 Th/cmm (4.8-10.8) 03/14/17 04:50 RBC 2.99 Mil/cmm (3.80-5.20) L 03/14/17 04:50 Hgb 8.8 gm/dL (12-16) L 03/14/17 04:50 Hct 27.1 % (41.0-60) L 03/14/17 04:50 MCV 90.6 fl (81-100) 03/14/17 04:50 MCH 29.4 pg (27.0-31.0) 03/14/17 04:50 MCHC Differential 32.4 pg (28.0-36.0) 03/14/17 04:50 RDW 15.2 % (11.5-20.0) 03/14/17 04:50 Plt Count 206 Th/cmm (150-400) 03/14/17 04:50 MPV 7.6 fl 03/14/17 04:50 Neutrophils % 56.4 % (40.0-80.0) 03/14/17 04:50 Lymphocytes % 30.5 % (20.0-50.0) 03/14/17 04:50 Monocytes % 8.3 % (2.0-10.0) 03/14/17 04:50 Eosinophils % 4.3 % (0.0-5.0) 03/14/17 04:50 Basophils % 0.5 % (0.0-2.0) 03/14/17 04:50 Specimen Source Arterial 03/13/17 22:45 Sample Site Right Radial 03/13/17 22:45 pH 7.31 (7.35-7.45) L 03/13/17 22:45 pCO2 49.0 mmHg (35.0-45.0) H 03/13/17 22:45 pO2 81.0 mmHg (80.0-100.0) 03/13/17 22:45 HCO3 23.3 mEq/L (20.0-26.0) 03/13/17 22:45 Base Excess -2.0 mEq/L (-3.0-3.0) 03/13/17 22:45 O2 Saturation 95.0 % (92.0-100.0) 03/13/17 22:45 Tomasz Test Positive 03/13/17 22:45 Vent Rate NA 03/13/17 22:45 Inspired O2 NA 03/13/17 22:45 Tidal Volume NA 03/13/17 22:45 PEEP NA 03/13/17 22:45 Pressure (ins/psv/peep) NA 03/13/17 22:45 Critical Value KING RT 03/13/17 22:45 Sodium 136 mEq/L (136-145) 03/14/17 04:50 Potassium 5.2 mEq/L (3.5-5.1) H 03/14/17 04:50 Chloride 110 mEq/L (98-107) H 03/14/17 04:50 Carbon Dioxide 23.0 mEq/L (21.0-31.0) 03/14/17 04:50 Anion Gap 8.2 (7.0-16.0) 03/14/17 04:50 BUN 51 mg/dL (7-25) H 03/14/17 04:50 Creatinine 1.3 mg/dL (0.6-1.2) H 03/14/17 04:50 Est GFR ( Amer) 52.9 ml/min (>90) 03/14/17 04:50 Est GFR (Non-Af Amer) 43.7 ml/min 03/14/17 04:50 BUN/Creatinine Ratio 39.2 03/14/17 04:50 Glucose 148 mg/dL (70-105) H D 03/14/17 04:50 POC Glucose 254 MG/DL (70 - 105) H 03/15/17 06:53 Hemoglobin A1c % 9.4 % (4.0-6.0) H 03/13/17 22:45 Whole Bld Lactic Acid 0.90 mmol/L (0.60-1.99) 03/13/17 23:50 Calcium 8.5 mg/dL (8.6-10.3) L 03/14/17 04:50 Total Bilirubin 0.2 mg/dL (0.3-1.0) L 03/14/17 04:50 AST 8 U/L (13-39) L 03/14/17 04:50 ALT 9 U/L (7-52) 03/14/17 04:50 Alkaline Phosphatase 129 U/L (34-104) H 03/14/17 04:50 Total Protein 5.9 gm/dL (6.0-8.3) L 03/14/17 04:50 Albumin 2.7 gm/dL (3.7-5.3) L 03/14/17 04:50 Globulin 3.2 gm/dL 03/14/17 04:50 Albumin/Globulin Ratio 0.8 (1.0-1.8) L 03/14/17 04:50 Urine Source JORGE PORT 03/13/17 23:30 Urine Color YELLOW 03/13/17 23:30 Urine Clarity HAZY (CLEAR) 03/13/17 23:30 Urine pH 5.5 (4.6 - 8.0) 03/13/17 23:30 Ur Specific Stanley 1.020 (1.005-1.030) 03/13/17 23:30 Urine Protein 100 mg/dL (NEGATIVE) H 03/13/17 23:30 Urine Glucose (UA) >=1000 mg/dL (NEGATIVE) H 03/13/17 23:30 Urine Ketones NEGATIVE mg/dL (NEGATIVE) 03/13/17 23:30 Urine Blood MODERATE (NEGATIVE) H 03/13/17 23:30 Urine Nitrate POSITIVE (NEGATIVE) H 03/13/17 23:30 Urine Bilirubin NEGATIVE (NEGATIVE) 03/13/17 23:30 Urine Urobilinogen 0.2 E.U./dL (0.2 - 1.0) 03/13/17 23:30 Ur Leukocyte Esterase TRACE (NEGATIVE) H 03/13/17 23:30 Urine RBC 2-5 /hpf (0-5) 03/13/17 23:30 Urine WBC 25-50 /hpf (0-5) H 03/13/17 23:30 Ur Epithelial Cells MODERATE /lpf (FEW) 03/13/17 23:30 Urine Bacteria MODERATE /hpf (NONE SEEN) 03/13/17 23:30 Urine Yeast MODERATE /hpf (NONE SEEN) H 03/13/17 23:30 - Physical Exam Vitals and I&O: Vital Signs Temp 96.9 F 03/15/17 08:00 Pulse 64 03/15/17 08:00 Resp 20 03/15/17 08:00 BP 163/74 03/15/17 08:00 Pulse Ox 96 03/15/17 08:00 Intake & Output 03/14/17 03/15/17 03/15/17 18:59 06:59 18:59 Intake Total 1500 420 Output Total 1200 1450 Balance 300 -1030 Weight (lbs) 150.593 kg 152.18 kg Intake: Intake, IV Amount 1000 220 Fluconazole 100mg/50mL 50 100 mg In 50 ml @ 50 mls/ hr IV Q24HR [facility] Rx#: [id number] Sodium Chloride 0.9% 1, 1000 170 000 ml @ 100 mls/hr IV . Q10H [facility] Rx#:[id number] Oral 500 200 Output: Urine 1200 1450 Active Medications: Current Medications Acetaminophen (Tylenol) 650 mg PO Q4HR PRN PRN Reason: Pain Or Fever above 101 Stop: 05/13/17 08:02 Allopurinol (Zyloprim) 100 mg PO DAILY [facility] Stop: 05/13/17 08:59 Last Admin: 03/14/17 09:20 Dose: 100 mg Aspirin (Aspirin Chewable) 81 mg PO DAILY [facility] Stop: 05/13/17 08:59 Last Admin: 03/14/17 09:21 Dose: 81 mg Atorvastatin Calcium (Lipitor) 20 mg PO HS [facility] PRN Reason: Protocol Stop: 05/13/17 20:59 Last Admin: 03/14/17 21:54 Dose: 20 mg Baclofen (Lioresal) 10 mg PO QID [facility] Stop: 05/13/17 08:59 Last Admin: 03/14/17 21:55 Dose: 10 mg Enalapril Maleate (Vasotec) 10 mg PO BID [facility] Stop: 05/13/17 08:59 Last Admin: 03/14/17 17:12 Dose: 10 mg Gabapentin (Neurontin) 100 mg PO TID [facility] Stop: 05/13/17 08:59 Last Admin: 03/14/17 21:55 Dose: 100 mg Hydralazine HCl (Apresoline) 50 mg PO TID [facility] Stop: 05/13/17 08:59 Last Admin: 03/14/17 21:55 Dose: 50 mg Hydrocortisone (Hydrocortisone 1%) 1 appl TP BID [facility] Stop: 05/14/17 08:59 Sodium Chloride (Nacl 0.9%) 1,000 mls @ 100 mls/hr IV .Q10H [facility] Stop: 05/13/17 01:46 Last Infusion: 03/15/17 06:18 Dose: 100 mls/hr Fluconazole (Diflucan) 100 mg in 50 mls @ 50 mls/hr IV Q24HR [facility] Stop: 05/13/17 20:59 Last Infusion: 03/15/17 06:18 Dose: Infused Levofloxacin (Levaquin Pb) 250 mg in 50 mls @ 50 mls/hr IV Q24HR [facility] Stop: 05/14/17 08:59 Insulin Aspart (Novolog Insulin Sliding Scale) 0 units SUBQ ACHS [facility] PRN Reason: Protocol Stop: 05/13/17 11:29 Last Admin: 03/15/17 06:57 Dose: 6 units Miconazole Nitrate (Monistat) 100 mg VG BID [facility] Stop: 03/21/17 09:00 Last Admin: 03/14/17 17:19 Dose: 100 mg Nifedipine (Procardia) 20 mg PO DAILY [facility] Stop: 05/13/17 08:59 Last Admin: 03/14/17 09:23 Dose: 20 mg Pantoprazole Sodium (Protonix) 40 mg PO DAILY [facility] Stop: 05/13/17 08:59 Last Admin: 03/14/17 09:23 Dose: 40 mg Polyethylene Glycol (Miralax) 17 gm PO BID [facility] Stop: 05/13/17 08:59 Last Admin: 03/14/17 17:12 Dose: 17 gm Sucralfate (Carafate) 1 gm PO BIDAC [facility] Stop: 05/13/17 16:29 Last Admin: 03/15/17 07:00 Dose: 1 gm Tramadol HCl (Ultram) 50 mg PO QID [facility] Stop: 05/13/17 08:59 Last Admin: 03/14/17 21:57 Dose: 50 mg General: No acute distress HEENT: Atraumatic Cardiovascular: Regular rate, Normal S1 Assessment/Plan - Problem List Patient Problems: All Active Problems NAUSEA AND VOMITING (Acute) Nutritional Asmnt/Malnutr-PDOC - Dietary Evaluation Malnutrition Findings (Please click <Entered> for more info): Nutritional Asmnt/Malnutrition Start: 03/14/17 15: 52 Text: Status: Active Freq: Document 03/14/17 15:53 CATERINA (Rec: 03/14/17 16:14 CATERINA [email or web address]) Nutritional Asmnt/Malnutrition Patient General Information Nutritional Screening High Risk Consult Diagnosis uncontrolled, DM, UTI Pertinent Medical Hx/Surgical Hx HTN, DM, UTI, hypertensive cardiovascular disease, obesity, neurogenic bladder and jorge catheter Subjective Information Consult for high blood glucose received. Pt is a 66 yo female from SNF admitted for high blood sugar. Pt was alert and talkative during the time of visit. Pt reported consumed 100% of breakfast this morning, good appetite. Pt appeared obese, no fat/ muscle wasting noted. Current Diet Order/ Nutrition Support CCHO Pertinent Medications Novolog, Levaquin, Miralax, Nacl IV Pertinent Labs 03/14 Na 136, K 5.2H, Cl 110H, BUN 51H, Cr 1.3H, Glu 148H ( 436 on adm), A1C 9.4, AST 8L, ALT 9, Alb 2.7 POC 164-266 Nutritional Hx/Data Height 1.75 m Height (Calculated Centimeters) 175.3 Current Weight (lbs) 150.593 kg Weight (Calculated Kilograms) 150.6 Weight (Calculated Grams) 971837.7 Body Mass Index (BMI) 49.0 GI Symptoms GI Symptoms None Difficult in: None Food Allergies Yes: seafood, shellfish per pt Usual diet at home diebetic diet at SNF. Usually 3 meals daily. Pt drink boost as needed if she does not eat the meal. Skin Integrity/Comment: Berny score 13 Pressure area to buttocks, reddened rash to right and left hand Estimated Nutritional Goals BEE in Kcals: Adj wt of IBW Calories/Kcals/Kg 25-30 Kcals Calculated 2092-3460 (adj wt 192lb/87kg) Protein: Adj wt of IBW Protein g/k-1.2 Protein Calculated 87-104 Fluid: ml 1669-0268 Nutritional Problem 2. Problem Problem obesity Etiology inbalanced energy intake Signs/Symptoms: BMI 49 1. Problem Problem altered nutrition related lab values Etiology dx of DM Signs/Symptoms: Glu 148-436, POC 164-266 Malnutrition Alert Protein-Calorie Malnutrition N/A Is there a minimum of two criteria No selected? Query Text:Check all the applicable criteria. A minimum of two criteria are recommended for diagnosis of either severe or non-severe malnutrition. Intervention/Recommendation Comments 1. Continue with current diet as ordered. Encouraged 3 meals daily, balanced meal including whole grain, veggies , dairy, protein, eat protein rich food. pt showed interested and understand education. 2. pt reported seafood allergy , notified diet clert to update diet profile 3. monitor glucose level, adjust insullin as needed 4. Monitor PO intake, labs, skin, wt 5. F/U as moderate risk in 3-5 days, 03/17-03/19 Expected Outcomes/Goals Expected Outcomes/Goals 1. PO intake continue to meet at least 75% of nutritional needs 2. wt stability 3. glucose, labs to improve 4. skin to improve
[2017-03-15] MEDS: Aspirin 81mg Chewable Tab PO SCH (09:30)
[2017-03-15] MEDS: Pantoprazole 40 mg EC Tab PO SCH (09:31)
[2017-03-15] MEDS: MICONAZOLE NITRATE 100 MG KIT VG SCH ×2 (09:33→18:58)
[2017-03-15] MEDS: POLYETHYLENE GLYCOL 3350 17 GM PACK PO SCH ×2 (09:34→17:53)
--- NOTE | 2017-03-15 11:02 | Infectious Disease Prog Note ---
Infectious Disease Subjective - Review of Systems Service Date: 03/15/17 Events since last encounter: Doing well. no fever. Subjective: Doing well. Infectious Disease Objective - Results Result Diagrams: 03/14/17 04:50 03/14/17 04:50 Recent Labs: Laboratory Last Values WBC 6.6 Th/cmm (4.8-10.8) 03/14/17 04:50 RBC 2.99 Mil/cmm (3.80-5.20) L 03/14/17 04:50 Hgb 8.8 gm/dL (12-16) L 03/14/17 04:50 Hct 27.1 % (41.0-60) L 03/14/17 04:50 MCV 90.6 fl (81-100) 03/14/17 04:50 MCH 29.4 pg (27.0-31.0) 03/14/17 04:50 MCHC Differential 32.4 pg (28.0-36.0) 03/14/17 04:50 RDW 15.2 % (11.5-20.0) 03/14/17 04:50 Plt Count 206 Th/cmm (150-400) 03/14/17 04:50 MPV 7.6 fl 03/14/17 04:50 Neutrophils % 56.4 % (40.0-80.0) 03/14/17 04:50 Lymphocytes % 30.5 % (20.0-50.0) 03/14/17 04:50 Monocytes % 8.3 % (2.0-10.0) 03/14/17 04:50 Eosinophils % 4.3 % (0.0-5.0) 03/14/17 04:50 Basophils % 0.5 % (0.0-2.0) 03/14/17 04:50 Specimen Source Arterial 03/13/17 22:45 Sample Site Right Radial 03/13/17 22:45 pH 7.31 (7.35-7.45) L 03/13/17 22:45 pCO2 49.0 mmHg (35.0-45.0) H 03/13/17 22:45 pO2 81.0 mmHg (80.0-100.0) 03/13/17 22:45 HCO3 23.3 mEq/L (20.0-26.0) 03/13/17 22:45 Base Excess -2.0 mEq/L (-3.0-3.0) 03/13/17 22:45 O2 Saturation 95.0 % (92.0-100.0) 03/13/17 22:45 Tomasz Test Positive 03/13/17 22:45 Vent Rate NA 03/13/17 22:45 Inspired O2 NA 03/13/17 22:45 Tidal Volume NA 03/13/17 22:45 PEEP NA 03/13/17 22:45 Pressure (ins/psv/peep) NA 03/13/17 22:45 Critical Value KING RT 03/13/17 22:45 Sodium 136 mEq/L (136-145) 03/14/17 04:50 Potassium 5.2 mEq/L (3.5-5.1) H 03/14/17 04:50 Chloride 110 mEq/L (98-107) H 03/14/17 04:50 Carbon Dioxide 23.0 mEq/L (21.0-31.0) 03/14/17 04:50 Anion Gap 8.2 (7.0-16.0) 03/14/17 04:50 BUN 51 mg/dL (7-25) H 03/14/17 04:50 Creatinine 1.3 mg/dL (0.6-1.2) H 03/14/17 04:50 Est GFR ( Amer) 52.9 ml/min (>90) 03/14/17 04:50 Est GFR (Non-Af Amer) 43.7 ml/min 03/14/17 04:50 BUN/Creatinine Ratio 39.2 03/14/17 04:50 Glucose 148 mg/dL (70-105) H D 03/14/17 04:50 POC Glucose 254 MG/DL (70 - 105) H 03/15/17 06:53 Hemoglobin A1c % 9.4 % (4.0-6.0) H 03/13/17 22:45 Whole Bld Lactic Acid 0.90 mmol/L (0.60-1.99) 03/13/17 23:50 Calcium 8.5 mg/dL (8.6-10.3) L 03/14/17 04:50 Total Bilirubin 0.2 mg/dL (0.3-1.0) L 03/14/17 04:50 AST 8 U/L (13-39) L 03/14/17 04:50 ALT 9 U/L (7-52) 03/14/17 04:50 Alkaline Phosphatase 129 U/L (34-104) H 03/14/17 04:50 Total Protein 5.9 gm/dL (6.0-8.3) L 03/14/17 04:50 Albumin 2.7 gm/dL (3.7-5.3) L 03/14/17 04:50 Globulin 3.2 gm/dL 03/14/17 04:50 Albumin/Globulin Ratio 0.8 (1.0-1.8) L 03/14/17 04:50 Urine Source JORGE PORT 03/13/17 23:30 Urine Color YELLOW 03/13/17 23:30 Urine Clarity HAZY (CLEAR) 03/13/17 23:30 Urine pH 5.5 (4.6 - 8.0) 03/13/17 23:30 Ur Specific Parker 1.020 (1.005-1.030) 03/13/17 23:30 Urine Protein 100 mg/dL (NEGATIVE) H 03/13/17 23:30 Urine Glucose (UA) >=1000 mg/dL (NEGATIVE) H 03/13/17 23:30 Urine Ketones NEGATIVE mg/dL (NEGATIVE) 03/13/17 23:30 Urine Blood MODERATE (NEGATIVE) H 03/13/17 23:30 Urine Nitrate POSITIVE (NEGATIVE) H 03/13/17 23:30 Urine Bilirubin NEGATIVE (NEGATIVE) 03/13/17 23:30 Urine Urobilinogen 0.2 E.U./dL (0.2 - 1.0) 03/13/17 23:30 Ur Leukocyte Esterase TRACE (NEGATIVE) H 03/13/17 23:30 Urine RBC 2-5 /hpf (0-5) 03/13/17 23:30 Urine WBC 25-50 /hpf (0-5) H 03/13/17 23:30 Ur Epithelial Cells MODERATE /lpf (FEW) 03/13/17 23:30 Urine Bacteria MODERATE /hpf (NONE SEEN) 03/13/17 23:30 Urine Yeast MODERATE /hpf (NONE SEEN) H 03/13/17 23:30 - Physical Exam Vitals and I&O: Vital Signs Temp 96.9 F 03/15/17 08:00 Pulse 64 03/15/17 09:33 Resp 20 03/15/17 08:00 BP 163/74 03/15/17 09:33 Pulse Ox 96 03/15/17 08:00 Intake & Output 03/14/17 03/15/17 03/15/17 18:59 06:59 18:59 Intake Total 1500 420 Output Total 1200 1450 Balance 300 -1030 Weight (lbs) 150.593 kg 152.18 kg Intake: Intake, IV Amount 1000 220 Fluconazole 100mg/50mL 50 100 mg In 50 ml @ 50 mls/ hr IV Q24HR [facility] Rx#: [id number] Sodium Chloride 0.9% 1, 1000 170 000 ml @ 100 mls/hr IV . Q10H [facility] Rx#:[id number] Oral 500 200 Output: Urine 1200 1450 Active Medications: Current Medications Acetaminophen (Tylenol) 650 mg PO Q4HR PRN PRN Reason: Pain Or Fever above 101 Stop: 05/13/17 08:02 Allopurinol (Zyloprim) 100 mg PO DAILY [facility] Stop: 05/13/17 08:59 Last Admin: 03/15/17 09:32 Dose: 100 mg Aspirin (Aspirin Chewable) 81 mg PO DAILY [facility] Stop: 05/13/17 08:59 Last Admin: 03/15/17 09:30 Dose: 81 mg Atorvastatin Calcium (Lipitor) 20 mg PO HS [facility] PRN Reason: Protocol Stop: 05/13/17 20:59 Last Admin: 03/14/17 21:54 Dose: 20 mg Baclofen (Lioresal) 10 mg PO QID [facility] Stop: 05/13/17 08:59 Last Admin: 03/15/17 09:30 Dose: 10 mg Enalapril Maleate (Vasotec) 10 mg PO BID [facility] Stop: 05/13/17 08:59 Last Admin: 03/15/17 09:32 Dose: 10 mg Gabapentin (Neurontin) 100 mg PO TID [facility] Stop: 05/13/17 08:59 Last Admin: 03/15/17 09:30 Dose: 100 mg Hydralazine HCl (Apresoline) 50 mg PO TID [facility] Stop: 05/13/17 08:59 Last Admin: 03/15/17 09:33 Dose: 50 mg Hydrocortisone (Hydrocortisone 1%) 1 appl TP BID [facility] Stop: 05/14/17 08:59 Last Admin: 03/15/17 09:38 Dose: 1 appl Sodium Chloride (Nacl 0.9%) 1,000 mls @ 100 mls/hr IV .Q10H [facility] Stop: 05/13/17 01:46 Last Infusion: 03/15/17 06:18 Dose: 100 mls/hr Fluconazole (Diflucan) 100 mg in 50 mls @ 50 mls/hr IV Q24HR [facility] Stop: 05/13/17 20:59 Last Infusion: 03/15/17 06:18 Dose: Infused Levofloxacin (Levaquin Pb) 250 mg in 50 mls @ 50 mls/hr IV Q24HR [facility] Stop: 05/14/17 08:59 Last Admin: 03/15/17 09:37 Dose: 50 mls/hr Insulin Aspart (Novolog Insulin Sliding Scale) 0 units SUBQ ACHS [facility] PRN Reason: Protocol Stop: 05/13/17 11:29 Last Admin: 03/15/17 06:57 Dose: 6 units Miconazole Nitrate (Monistat) 100 mg VG BID [facility] Stop: 03/21/17 09:00 Last Admin: 03/15/17 09:33 Dose: 100 mg Nifedipine (Procardia) 20 mg PO DAILY [facility] Stop: 05/13/17 08:59 Last Admin: 03/15/17 09:33 Dose: 20 mg Pantoprazole Sodium (Protonix) 40 mg PO DAILY [facility] Stop: 05/13/17 08:59 Last Admin: 03/15/17 09:31 Dose: 40 mg Polyethylene Glycol (Miralax) 17 gm PO BID [facility] Stop: 05/13/17 08:59 Last Admin: 03/15/17 09:34 Dose: 17 gm Sucralfate (Carafate) 1 gm PO BIDAC [facility] Stop: 05/13/17 16:29 Last Admin: 03/15/17 07:00 Dose: 1 gm Tramadol HCl (Ultram) 50 mg PO QID [facility] Stop: 05/13/17 08:59 Last Admin: 03/15/17 09:31 Dose: Not Given General: no acute distress, other (obese) HEENT: atraumatic, normocephalic, PERRLA, EOMI Neck: supple, no thyromegaly Cardiovascular: S1S2, regular Lungs: clear to auscultation bilaterally, clear to percussion Abdomen: soft, no tender, no hepatomegaly Extremities: no cyanosis, no clubbing, no edema Neurological: awake, alert Skin: intact Infectious Disease Assmt/Plan - Problem List Patient Problems: All Active Problems NAUSEA AND VOMITING (Acute) - Assessment Assessment: IMPRESSION: 1. Uncontrolled glucose, diabetes mellitus type 2. 2. Morbid obesity. 3. Urinary tract infection. 4. Hypertension. 5. Anemia. 6. Suspected sleep apnea. RECOMMENDATIONS: continue Levaquin and Diflucan, Nutritional Asmnt/Malnutr-PDOC - Dietary Evaluation Malnutrition Findings (Please click <Entered> for more info): Nutritional Asmnt/Malnutrition Start: 03/14/17 15: 52 Text: Status: Active Freq: Document 03/14/17 15:53 BRIANG (Rec: 03/14/17 16:14 [email or web address]) Nutritional Asmnt/Malnutrition Patient General Information Nutritional Screening High Risk Consult Diagnosis uncontrolled, DM, UTI Pertinent Medical Hx/Surgical Hx HTN, DM, UTI, hypertensive cardiovascular disease, obesity, neurogenic bladder and jorge catheter Subjective Information Consult for high blood glucose received. Pt is a 66 yo female from SNF admitted for high blood sugar. Pt was alert and talkative during the time of visit. Pt reported consumed 100% of breakfast this morning, good appetite. Pt appeared obese, no fat/ muscle wasting noted. Current Diet Order/ Nutrition Support CCHO Pertinent Medications Novolog, Levaquin, Miralax, Nacl IV Pertinent Labs 03/14 Na 136, K 5.2H, Cl 110H, BUN 51H, Cr 1.3H, Glu 148H ( 436 on adm), A1C 9.4, AST 8L, ALT 9, Alb 2.7 POC 164-266 Nutritional Hx/Data Height 1.75 m Height (Calculated Centimeters) 175.3 Current Weight (lbs) 150.593 kg Weight (Calculated Kilograms) 150.6 Weight (Calculated Grams) 820435.7 Body Mass Index (BMI) 49.0 GI Symptoms GI Symptoms None Difficult in: None Food Allergies Yes: seafood, shellfish per pt Usual diet at home diebetic diet at [facility]. Usually 3 meals daily. Pt drink boost as needed if she does not eat the meal. Skin Integrity/Comment: Berny score 13 Pressure area to buttocks, reddened rash to right and left hand Estimated Nutritional Goals BEE in Kcals: Adj wt of IBW Calories/Kcals/Kg 25-30 Kcals Calculated 0991-4636 (adj wt 192lb/87kg) Protein: Adj wt of IBW Protein g/k-1.2 Protein Calculated 87-104 Fluid: ml 1774-8814 Nutritional Problem 2. Problem Problem obesity Etiology inbalanced energy intake Signs/Symptoms: BMI 49 1. Problem Problem altered nutrition related lab values Etiology dx of DM Signs/Symptoms: Glu 148-436, POC 164-266 Malnutrition Alert Protein-Calorie Malnutrition N/A Is there a minimum of two criteria No selected? Query Text:Check all the applicable criteria. A minimum of two criteria are recommended for diagnosis of either severe or non-severe malnutrition. Intervention/Recommendation Comments 1. Continue with current diet as ordered. Encouraged 3 meals daily, balanced meal including whole grain, veggies , dairy, protein, eat protein rich food. pt showed interested and understand education. 2. pt reported seafood allergy , notified diet clert to update diet profile 3. monitor glucose level, adjust insullin as needed 4. Monitor PO intake, labs, skin, wt 5. F/U as moderate risk in 3-5 days, 03/17-03/19 Expected Outcomes/Goals Expected Outcomes/Goals 1. PO intake continue to meet at least 75% of nutritional needs 2. wt stability 3. glucose, labs to improve 4. skin to improve
--- NOTE | 2017-03-15 12:49 | Internal Medicine Prog Note ---
Internal Medicine Subjective - Subjective Service Date: 03/15/17 (feels a bit nauseated) Patient seen and examined:: with staff Patient is:: awake Per staff patient has:: tolerating meds Internal Medicine Objective - Results Result Diagrams: 03/14/17 04:50 03/14/17 04:50 Recent Labs: Laboratory Last Values WBC 6.6 Th/cmm (4.8-10.8) 03/14/17 04:50 RBC 2.99 Mil/cmm (3.80-5.20) L 03/14/17 04:50 Hgb 8.8 gm/dL (12-16) L 03/14/17 04:50 Hct 27.1 % (41.0-60) L 03/14/17 04:50 MCV 90.6 fl (81-100) 03/14/17 04:50 MCH 29.4 pg (27.0-31.0) 03/14/17 04:50 MCHC Differential 32.4 pg (28.0-36.0) 03/14/17 04:50 RDW 15.2 % (11.5-20.0) 03/14/17 04:50 Plt Count 206 Th/cmm (150-400) 03/14/17 04:50 MPV 7.6 fl 03/14/17 04:50 Neutrophils % 56.4 % (40.0-80.0) 03/14/17 04:50 Lymphocytes % 30.5 % (20.0-50.0) 03/14/17 04:50 Monocytes % 8.3 % (2.0-10.0) 03/14/17 04:50 Eosinophils % 4.3 % (0.0-5.0) 03/14/17 04:50 Basophils % 0.5 % (0.0-2.0) 03/14/17 04:50 Specimen Source Arterial 03/13/17 22:45 Sample Site Right Radial 03/13/17 22:45 pH 7.31 (7.35-7.45) L 03/13/17 22:45 pCO2 49.0 mmHg (35.0-45.0) H 03/13/17 22:45 pO2 81.0 mmHg (80.0-100.0) 03/13/17 22:45 HCO3 23.3 mEq/L (20.0-26.0) 03/13/17 22:45 Base Excess -2.0 mEq/L (-3.0-3.0) 03/13/17 22:45 O2 Saturation 95.0 % (92.0-100.0) 03/13/17 22:45 Tomasz Test Positive 03/13/17 22:45 Vent Rate NA 03/13/17 22:45 Inspired O2 NA 03/13/17 22:45 Tidal Volume NA 03/13/17 22:45 PEEP NA 03/13/17 22:45 Pressure (ins/psv/peep) NA 03/13/17 22:45 Critical Value KING RT 03/13/17 22:45 Sodium 136 mEq/L (136-145) 03/14/17 04:50 Potassium 5.2 mEq/L (3.5-5.1) H 03/14/17 04:50 Chloride 110 mEq/L (98-107) H 03/14/17 04:50 Carbon Dioxide 23.0 mEq/L (21.0-31.0) 03/14/17 04:50 Anion Gap 8.2 (7.0-16.0) 03/14/17 04:50 BUN 51 mg/dL (7-25) H 03/14/17 04:50 Creatinine 1.3 mg/dL (0.6-1.2) H 03/14/17 04:50 Est GFR ( Amer) 52.9 ml/min (>90) 03/14/17 04:50 Est GFR (Non-Af Amer) 43.7 ml/min 03/14/17 04:50 BUN/Creatinine Ratio 39.2 03/14/17 04:50 Glucose 148 mg/dL (70-105) H D 03/14/17 04:50 POC Glucose 254 MG/DL (70 - 105) H 03/15/17 06:53 Hemoglobin A1c % 9.4 % (4.0-6.0) H 03/13/17 22:45 Whole Bld Lactic Acid 0.90 mmol/L (0.60-1.99) 03/13/17 23:50 Calcium 8.5 mg/dL (8.6-10.3) L 03/14/17 04:50 Total Bilirubin 0.2 mg/dL (0.3-1.0) L 03/14/17 04:50 AST 8 U/L (13-39) L 03/14/17 04:50 ALT 9 U/L (7-52) 03/14/17 04:50 Alkaline Phosphatase 129 U/L (34-104) H 03/14/17 04:50 Total Protein 5.9 gm/dL (6.0-8.3) L 03/14/17 04:50 Albumin 2.7 gm/dL (3.7-5.3) L 03/14/17 04:50 Globulin 3.2 gm/dL 03/14/17 04:50 Albumin/Globulin Ratio 0.8 (1.0-1.8) L 03/14/17 04:50 Urine Source [place]GE [place] 03/13/17 23:30 Urine Color YELLOW 03/13/17 23:30 Urine Clarity HAZY (CLEAR) 03/13/17 23:30 Urine pH 5.5 (4.6 - 8.0) 03/13/17 23:30 Ur Specific [place] 1.020 (1.005-1.030) 03/13/17 23:30 Urine Protein 100 mg/dL (NEGATIVE) H 03/13/17 23:30 Urine Glucose (UA) >=1000 mg/dL (NEGATIVE) H 03/13/17 23:30 Urine Ketones NEGATIVE mg/dL (NEGATIVE) 03/13/17 23:30 Urine Blood MODERATE (NEGATIVE) H 03/13/17 23:30 Urine Nitrate POSITIVE (NEGATIVE) H 03/13/17 23:30 Urine Bilirubin NEGATIVE (NEGATIVE) 03/13/17 23:30 Urine Urobilinogen 0.2 E.U./dL (0.2 - 1.0) 03/13/17 23:30 Ur Leukocyte Esterase TRACE (NEGATIVE) H 03/13/17 23:30 Urine RBC 2-5 /hpf (0-5) 03/13/17 23:30 Urine WBC 25-50 /hpf (0-5) H 03/13/17 23:30 Ur Epithelial Cells MODERATE /lpf (FEW) 03/13/17 23:30 Urine Bacteria MODERATE /hpf (NONE SEEN) 03/13/17 23:30 Urine Yeast MODERATE /hpf (NONE SEEN) H 03/13/17 23:30 - Physical Exam Vitals and I&O: Vital Signs Temp 96.9 F 03/15/17 08:00 Pulse 64 03/15/17 09:33 Resp 20 03/15/17 08:00 BP 163/74 03/15/17 09:33 Pulse Ox 96 03/15/17 08:00 Intake & Output 03/14/17 03/15/17 03/15/17 18:59 06:59 18:59 Intake Total 1500 420 Output Total 1200 1450 Balance 300 -1030 Weight (lbs) 332 lb 335 lb 8 oz Intake: Intake, IV Amount 1000 220 Fluconazole 100mg/50mL 50 100 mg In 50 ml @ 50 mls/ hr IV Q24HR [facility] Rx#: [id number] Sodium Chloride 0.9% 1, 1000 170 000 ml @ 100 mls/hr IV . Q10H [facility] Rx#:[id number] Oral 500 200 Output: Urine 1200 1450 Active Medications: Current Medications Acetaminophen (Tylenol) 650 mg PO Q4HR PRN PRN Reason: Pain Or Fever above 101 Stop: 05/13/17 08:02 Allopurinol (Zyloprim) 100 mg PO DAILY [facility] Stop: 05/13/17 08:59 Last Admin: 03/15/17 09:32 Dose: 100 mg Aspirin (Aspirin Chewable) 81 mg PO DAILY [facility] Stop: 05/13/17 08:59 Last Admin: 03/15/17 09:30 Dose: 81 mg Atorvastatin Calcium (Lipitor) 20 mg PO HS [facility] PRN Reason: Protocol Stop: 05/13/17 20:59 Last Admin: 03/14/17 21:54 Dose: 20 mg Baclofen (Lioresal) 10 mg PO QID [facility] Stop: 05/13/17 08:59 Last Admin: 03/15/17 09:30 Dose: 10 mg Enalapril Maleate (Vasotec) 10 mg PO BID [facility] Stop: 05/13/17 08:59 Last Admin: 03/15/17 09:32 Dose: 10 mg Gabapentin (Neurontin) 100 mg PO TID [facility] Stop: 05/13/17 08:59 Last Admin: 03/15/17 09:30 Dose: 100 mg Hydralazine HCl (Apresoline) 50 mg PO TID [facility] Stop: 05/13/17 08:59 Last Admin: 03/15/17 09:33 Dose: 50 mg Hydrocortisone (Hydrocortisone 1%) 1 appl TP BID [facility] Stop: 05/14/17 08:59 Last Admin: 03/15/17 09:38 Dose: 1 appl Sodium Chloride (Nacl 0.9%) 1,000 mls @ 100 mls/hr IV .Q10H [facility] Stop: 05/13/17 01:46 Last Infusion: 03/15/17 06:18 Dose: 100 mls/hr Fluconazole (Diflucan) 100 mg in 50 mls @ 50 mls/hr IV Q24HR [facility] Stop: 05/13/17 20:59 Last Infusion: 03/15/17 06:18 Dose: Infused Levofloxacin (Levaquin Pb) 250 mg in 50 mls @ 50 mls/hr IV Q24HR [facility] Stop: 05/14/17 08:59 Last Admin: 03/15/17 09:37 Dose: 50 mls/hr Insulin Aspart (Novolog Insulin Sliding Scale) 0 units SUBQ ACHS [facility] PRN Reason: Protocol Stop: 05/13/17 11:29 Last Admin: 03/15/17 06:57 Dose: 6 units Miconazole Nitrate (Monistat) 100 mg VG BID [facility] Stop: 03/21/17 09:00 Last Admin: 03/15/17 09:33 Dose: 100 mg Nifedipine (Procardia) 20 mg PO DAILY [facility] Stop: 05/13/17 08:59 Last Admin: 03/15/17 09:33 Dose: 20 mg Pantoprazole Sodium (Protonix) 40 mg PO DAILY [facility] Stop: 05/13/17 08:59 Last Admin: 03/15/17 09:31 Dose: 40 mg Polyethylene Glycol (Miralax) 17 gm PO BID [facility] Stop: 05/13/17 08:59 Last Admin: 03/15/17 09:34 Dose: 17 gm Sucralfate (Carafate) 1 gm PO BIDAC [facility] Stop: 05/13/17 16:29 Last Admin: 03/15/17 07:00 Dose: 1 gm Tramadol HCl (Ultram) 50 mg PO QID [facility] Stop: 05/13/17 08:59 Last Admin: 03/15/17 09:31 Dose: Not Given General: alert HEENT: NC/AT, PERRLA Neck: Supple Lungs: CTAB Cardiovascular: RRR, Normal S1, Normal S2, without murmur Abdomen: soft, non-tender, non-distended, positive bowel sound Internal Medicine Assmt/Plan - Assessment Assessment: 1. Uncontrolled glucose, diabetes mellitus type 2. 2. Morbid obesity. 3. Urinary tract infection. 4. Hypertension. 5. Anemia. 6. Suspected sleep apnea. - Plan Plan: continue ivabx as per id monitor glucose am labs continue current plan of care Nutritional Asmnt/Malnutr-PDOC - Dietary Evaluation Malnutrition Findings (Please click <Entered> for more info): Nutritional Asmnt/Malnutrition Start: 03/14/17 15: 52 Text: Status: Active Freq: Document 03/14/17 15:53 LCHENG (Rec: 03/14/17 16:14 [email or web address]) Nutritional Asmnt/Malnutrition Patient General Information Nutritional Screening High Risk Consult Diagnosis uncontrolled, DM, UTI Pertinent Medical Hx/Surgical Hx HTN, DM, UTI, hypertensive cardiovascular disease, obesity, neurogenic bladder and jorge catheter Subjective Information Consult for high blood glucose received. Pt is a 66 yo female from [facility] admitted for high blood sugar. Pt was alert and talkative during the time of visit. Pt reported consumed 100% of breakfast this morning, good appetite. Pt appeared obese, no fat/ muscle wasting noted. Current Diet Order/ Nutrition Support CCHO Pertinent Medications Novolog, Levaquin, Miralax, Nacl IV Pertinent Labs 03/14 Na 136, K 5.2H, Cl 110H, BUN 51H, Cr 1.3H, Glu 148H ( 436 on adm), A1C 9.4, AST 8L, ALT 9, Alb 2.7 POC 164-266 Nutritional Hx/Data Height 5 ft 9 in Height (Calculated Centimeters) 175.3 Current Weight (lbs) 332 lb Weight (Calculated Kilograms) 150.6 Weight (Calculated Grams) 018329.7 Body Mass Index (BMI) 49.0 GI Symptoms GI Symptoms None Difficult in: None Food Allergies Yes: seafood, shellfish per pt Usual diet at home diebetic diet at [facility]. Usually 3 meals daily. Pt drink boost as needed if she does not eat the meal. Skin Integrity/Comment: Berny score 13 Pressure area to buttocks, reddened rash to right and left hand Estimated Nutritional Goals BEE in Kcals: Adj wt of IBW Calories/Kcals/Kg 25-30 Kcals Calculated 9841-0021 (adj wt 192lb/87kg) Protein: Adj wt of IBW Protein g/k-1.2 Protein Calculated 87-104 Fluid: ml [id number] Nutritional Problem 2. Problem Problem obesity Etiology inbalanced energy intake Signs/Symptoms: BMI 49 1. Problem Problem altered nutrition related lab values Etiology dx of DM Signs/Symptoms: Glu 148-436, POC 164-266 Malnutrition Alert Protein-Calorie Malnutrition N/A Is there a minimum of two criteria No selected? Query Text:Check all the applicable criteria. A minimum of two criteria are recommended for diagnosis of either severe or non-severe malnutrition. Intervention/Recommendation Comments 1. Continue with current diet as ordered. Encouraged 3 meals daily, balanced meal including whole grain, veggies , dairy, protein, eat protein rich food. pt showed interested and understand education. 2. pt reported seafood allergy , notified diet clert to update diet profile 3. monitor glucose level, adjust insullin as needed 4. Monitor PO intake, labs, skin, wt 5. F/U as moderate risk in 3-5 days, 03/17-03/19 Expected Outcomes/Goals Expected Outcomes/Goals 1. PO intake continue to meet at least 75% of nutritional needs 2. wt stability 3. glucose, labs to improve 4. skin to improve
[2017-03-15] MEDS ORDERED: Probiotic Screen MC PRN (15:53)
[2017-03-15] MEDS ORDERED: Lactobacillus Rhamnosus 10 Billion CFU Capsule PO SCH (16:00)
[2017-03-15] MEDS: Atorvastatin Calcium 10 MG TAB PO SCH (21:09)
[2017-03-15] MEDS: Fluconazole 100mg/50mL 100 MG/50 ML BOTTLE IV SCH (21:16)
--- NOTE | 2017-03-19 21:09 | Discharge Summary ---
DATE OF DISCHARGE: 03/16/2017 COURSE OF TREATMENT: This is a 66-year-old female who was [facility] through [facility] due to elevated blood sugar and abdominal pain. From the Emergency Room, blood works in a series of treatment were done, on to which the patient was diagnosed with uncontrolled diabetes mellitus and also with urinary tract infection; hence, otherwise the patient was admitted to medical unit on to which the patient received a series of IV antibiotics until blood sugar was stabilized and afterwards the patient was discharged back to [facility] to [facility]. Medication reconciliation were done accordingly. Dr. Wright to follow the patient in a [facility] facility. JOB# [id number]
== END 2017-03-15 22:35 | disposition home or self-care (01) | DRG 637 ==
LOC: ER 22:02 → MSI 23:45
PROVIDERS: ADMIT Internal Medicine; ATTEND Internal Medicine
DX: E11.00 Type 2 diabetes mellitus with hyperosmolarity without nonketotic hyperglycemic-hyperosmolar coma (NKHHC) (principal); G93.41 Metabolic encephalopathy; E87.4 Mixed disorder of acid-base balance; E46 Unspecified protein-calorie malnutrition; N39.0 Urinary tract infection, site not specified; E87.1 Hypo-osmolality and hyponatremia; Z68.42 Body mass index [BMI] 45.0-49.9, adult; N31.9 Neuromuscular dysfunction of bladder, unspecified; E11.21 Type 2 diabetes mellitus with diabetic nephropathy; E66.01 Morbid (severe) obesity due to excess calories; E11.319 Type 2 diabetes mellitus with unspecified diabetic retinopathy without macular edema; D64.9 Anemia, unspecified; I11.9 Hypertensive heart disease without heart failure; M62.50 Muscle wasting and atrophy, not elsewhere classified, unspecified site; M19.90 Unspecified osteoarthritis, unspecified site; E86.0 Dehydration; Z88.6 Allergy status to analgesic agent; Z88.1 Allergy status to other antibiotic agents; Z91.041 Radiographic dye allergy status; Z91.013 Allergy to seafood
CPT/HCPCS: 36415-UA; 36600-90; 71010-TC; 80053-TC; 81001-TC; 82803-TC; 82948-90; 83036-90; 83605; 85025-TC; 87086-90; 93005; J1450; J1815; J1956; J3370; J7030; J7040; Z7610